=== PATIENT | male | born 1935 | race Caucasian/White ===

== ENCOUNTER → 2017-01-08 | Outpatient (CLI) | payer OTHER ==
[~2017-01-08] MED LIST: DOCU-94 PO; DUTA0.5C PO; ESCI1TAB9 PO; INSDGIPEN SC; INSUINJ4 SQ; LISI-792 PO; LPR25 PO; METF-383 PO; OMEP20CA9 PO; OXYB5TAB74 PO; SIMV10TA5 PO; TAMS0.4C38 PO; ZOLP5TAB PO
[2017-01-08 17:17] LABS: ALT/SGPT 19 U/L (12-78); BLOOD UREA NITROGEN 14 mg/dl (7-18); BUN/CREATININE RATIO 12.4 (10-20); CALCIUM 8.3 mg/dl (8.5-10.1); CARBON DIOXIDE 25 mmol/L (21-32); CHLORIDE 105 mmol/L (98-107); GLUCOSE 93 mg/dl (70-99); POTASSIUM 4.8 mmol/L (3.5-5.1); SODIUM 139 mmol/L (136-145)
[2017-01-08 17:22] LABS: ALB/GLOB RATIO 0.9 (0.9-2); ALKALINE PHOSPHATASE 75 U/L (45-117); AST/SGOT 15 U/L (15-37); PROSTATE SPECIFIC ANTIGEN 0.074 ng/ml (0.000-4.000)
[2017-01-09 06:12] LABS: ESTIMATED AVERAGE GLUCOSE 117 mg/dl; HA1C FLAG Normal (Normal)
--- NOTE | 2017-01-12 10:47 | CODING QUERY MEDICAL NECESSITY ---
SUPPORTING DIAGNOSIS NEEDED Dr. Bellamy, A supporting diagnosis is required for the test/procedure performed on this patient in order for us to be reimbursed by the patient's insurance. Please provide a supporting diagnosis for the following test/procedure listed below next to the test name along with your signature. *If there is no additional diagnosis for this patient that would support the following test/procedure please document that below next to the test/procedure. Test(s)/Procedure(s) that require a supporting diagnosis: * 72780 GLYCATED HEMOGLOBIN DIAGNOSIS: DATE OF SERVICE: 01/08/17 Provider Signature: Date: Thank you Dennis Joel [facility] Information Management Once completed, please kindly fax back to [phone] For questions please call [phone]
== END | disposition home or self-care (01) ==
LOC: C.LABBC 15:10
PROVIDERS: ATTEND Internal Medicine
DX: N40.1 Benign prostatic hyperplasia with lower urinary tract symptoms (principal); R33.9 Retention of urine, unspecified; I69.920 Aphasia following unspecified cerebrovascular disease; E11.9 Type 2 diabetes mellitus without complications

== ENCOUNTER 2017-01-25 12:08 | Emergency (ER) | payer OTHER ==
[~2017-01-25] VITALS: Ht 162.6 cm; Wt 76.3 kg
[~2017-01-25 12:08] MED LIST changes: +DTR/5 PO; -INSDGIPEN SC; -OXYB5TAB74 PO
[2017-01-25 12:14] VITALS: TEMP 36.7; Ht 162.6 cm; Wt 76.3 kg
--- NOTE | 2017-01-25 12:19 | EMERGENCY ROOM VISIT NOTE ---
History Report prepared by Dax: Flako Clayton Under the Supervision of: Dr. Flako Burnham M.D. First contact with patient: 12:10 Stated Complaint: FALL History of Present Illness The patient is a 81 year old male who presents to the Emergency Room by EMS with complaints of an episode of falling about 2 hours ago. Per EMS, he was going through his normal routine with his caregiver, and fell while getting his wheelchair. EMS notes a bump on the patient's head, and notes he does not use blood thinners. He was confused when EMS arrived, and has a history of stroke. Per the patient's caregiver, she heard him fall, but he was not unconscious or seizing when she found him. He has right sided weakness at baseline. He does not normally fall. He has a history of diabetes. The patient denies any neck pain, chest pain, shortness of breath, or any other pain. He does not recall falling this morning. Source of History: patient, family, caregiver, EMS Onset: about 2 hours ago Position: other (global) Quality: other (fall) Timing: other (episode) Associated Symptoms: No SOB, No chest pain, No neck pain Review of Systems See HPI for pertinent positives & negatives. A total of 10 systems reviewed and were otherwise negative. Past Medical & Surgical Medical Problems: (1) Altered mental status (2) Hemorrhagic stroke Old medical records were reviewed. Nurse's notes were reviewed and I agree with. Family History No pertinent family history stated. Social History Smoking Status: Former Smoker Alcohol Use: none Drug Use: none Marital Status: Housing Status: assisted living Occupation Status: retired Current/Historical Medications Scheduled Dutasteride (Avodart), 0.5 MG PO DAILY Escitalopram Oxalate (Lexapro), 10 MG PO DAILY Insulin Glargine (Lantus Solostar), 14 UNITS SC QPM Lisinopril (Zestril), 20 MG PO DAILY Metformin Hcl (Glucophage), 850 MG PO BID Metoprolol Tartrate (Lopressor), 25 MG PO BID Omeprazole (Prilosec), 20 MG PO DAILY Oxybutynin Chloride (Ditropan), 5 MG PO HS Simvastatin (Zocor), 10 MG PO HS Tamsulosin Hcl (Flomax), 0.4 MG PO DAILY Scheduled PRN Docusate Sodium (Colace), 100 MG PO BID PRN for Constipation Zolpidem Tartrate (Ambien), 5 MG PO HS PRN for Insomnia Allergies Coded Allergies: No Known Allergies (Verified , `, 01/25/17) Physical Exam Vital Signs Date Time Temp Pulse Resp B/P Pulse Ox O2 Delivery O2 Flow Rate FiO2 01/25/17 15:00 64 16 114/93 99 01/25/17 14:00 61 16 149/85 94 Room Air 01/25/17 13:08 75 19 01/25/17 12:38 70 20 01/25/17 12:27 74 01/25/17 12:14 36.7 62 14 143/97 95 Room Air Physical Exam General: Non-ill appearing, older male, no acute distress, answering questions appropriately. HEENT: Hematoma on posterior scalp. Pupils are equal round and reactive to light. Extraocular movements are intact. Oropharynx is pink with moist mucous membranes. No swelling of the mouth lips or tongue. Neck: Supple with a midline trachea. No meningeal signs or stiffness, no JVD or bruits. No Stridor. Chest: Clear to auscultation bilaterally. No wheezes or rhonchi. No increased work of breathing. Heart: regular rate and rhythm. Abdomen: Soft nontender, nondistended without rebound guarding or rigidity. Extremities: No cyanosis clubbing or edema. No calf tenderness or assymetry Spine/Back. Non tender to palpation. No CVA tenderness Skin: Good turgor without rashes. Neurologic exam: Baseline weakness with contractors of right arm and, to lesser extent, right leg. No facial droop or asymmetry. Normal speech. Alert to person , but not date or place. Medical Decision & Procedures ER Provider Diagnostic Interpretation: Radiology results as stated below per my review and radiologist interpretation: CT HEAD WITHOUT CONTRAST (CT) FINDINGS: No intra or extra-axial mass lesions are visualized. There is no CT evidence of acute cortical infarction. There is no evidence of midline shift. There is a tiny left anterior parafalcine subdural hematoma. There are extensive white matter hypodensities likely on a small vessel basis. There are old lacunar infarcts involving the thalami. There is an old infarcts involving the cerebellum. No calvarial fractures are visualized. There is ventricular dilatation, likely secondary to volume loss. There is a right mastoid effusion. IMPRESSION: 1. Tiny left anterior parafalcine subdural hematoma 2. Extensive white matter disease likely a small vessel basis 3. Old thalamic and right cerebellar infarcts 4. Right mastoid effusion Electronically signed by: Alexis Osullivan M.D. 01/25/2017 1:42 PM Dictated Date/Time: 01/25/2017 1:38 PM CHEST ONE VIEW PORTABLE FINDINGS: The heart is borderline enlarged. Postsurgical changes are evident within the cervical spine. There is no failure. 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 There is blunting of the right lateral costophrenic angle. Slight prominence the right basal markings are likely atelectatic. IMPRESSION: 1. Prominent right basilar markings likely atelectatic. Equivocal trace right pleural effusion. Electronically signed by: Alexis Osullivan M.D. 01/25/2017 12:48 PM Dictated Date/Time: 01/25/2017 12:46 PM Laboratory Results 01/25/17 12:43 Red Blood Count 4.86, Mean Corpuscular Volume 89.9, Mean Corpuscular Hemoglobin 30.9, Mean Corpuscular Hemoglobin Concent 34.3, Mean Platelet Volume 8.8, Neutrophils (%) (Auto) 54.9, Lymphocytes (%) (Auto) 35.7, Monocytes (%) (Auto) 6.1, Eosinophils (%) (Auto) 2.6, Basophils (%) (Auto) 0.4, Neutrophils # (Auto) 3.79, Lymphocytes # (Auto) 2.47, Monocytes # (Auto) 0.42, Eosinophils # (Auto) 0.18, Basophils # (Auto) 0.03 01/25/17 12:43 Test 01/25/17 12:43 01/25/17 12:47 White Blood Count 6.91 K/uL (4.8-10.8) Red Blood Count 4.86 M/uL (4.7-6.1) Hemoglobin 15.0 g/dL (14.0-18.0) Hematocrit 43.7 % (42-52) Mean Corpuscular Volume 89.9 fL (80-100) Mean Corpuscular Hemoglobin 30.9 pg (25-34) Mean Corpuscular Hemoglobin Concent 34.3 g/dl (32-36) Platelet Count 167 K/uL (130-400) Mean Platelet Volume 8.8 fL (7.4-10.4) Neutrophils (%) (Auto) 54.9 % Lymphocytes (%) (Auto) 35.7 % Monocytes (%) (Auto) 6.1 % Eosinophils (%) (Auto) 2.6 % Basophils (%) (Auto) 0.4 % Neutrophils # (Auto) 3.79 K/uL (1.4-6.5) Lymphocytes # (Auto) 2.47 K/uL (1.2-3.4) Monocytes # (Auto) 0.42 K/uL (0.11-0.59) Eosinophils # (Auto) 0.18 K/uL (0-0.5) Basophils # (Auto) 0.03 K/uL (0-0.2) RDW Standard Deviation 43.8 fL (36.4-46.3) RDW Coefficient of Variation 13.3 % (11.5-14.5) Immature Granulocyte % (Auto) 0.3 % Immature Granulocyte # (Auto) 0.02 K/uL (0.00-0.02) Anion Gap 8.0 mmol/L (3-11) Est Creatinine Clear Calc Drug Dose 55.1 ml/min Estimated GFR () 82.0 Estimated GFR (Non- 70.8 BUN/Creatinine Ratio 14.1 (10-20) Calcium Level 8.6 mg/dl (8.5-10.1) Total Bilirubin 0.5 mg/dl (0.2-1) Direct Bilirubin 0.1 mg/dl (0-0.2) Aspartate Amino Transf (AST/SGOT) 12 U/L (15-37) Alanine Aminotransferase (ALT/SGPT) 17 U/L (12-78) Alkaline Phosphatase 72 U/L (45-117) Total Protein 7.3 gm/dl (6.4-8.2) Albumin 3.5 gm/dl (3.4-5.0) Lipase 78 U/L (73-393) Bedside Troponin I 0.000 ng/ml (0-0.045) Laboratory studies as stated above per my review. ECG Indication: other (fall) Rate (beats per minute): 63 Rhythm: normal sinus Findings: no acute ischemic change, no ectopy, other (poor R wave progression) Comparison ECG Date: November 12, 2015 Change: no significant change ED Course 1212: Past medical records reviewed. The patient was evaluated in room C5, and a complete history and physical examination were performed. 1402: I updated the patient and caregiver. They are deciding what they would like to do. I recommended transfer to a tertiary care facility. 1427: I discussed the patient's case with Dr. Aguilar, who will accept the patient as a transfer. Medical Decision Differentials include intracranial hemorrhage, CVA, arrhythmia, acute coronary syndrome, and electrolyte or metabolic abnormality. This patient comes in as described above. He has a history of a stroke and has significant right-sided weakness at baseline with difficulty ambulating. He was getting out of his chair and fell. There was no known loss of consciousness. He seems to be back at his baseline now has no new neurologic deficits. CAT scan of his head was obtained. EKG and multiple blood testing was obtained. His EKG does not suggest acute coronary syndrome or arrhythmia. Cagey and troponin do not suggest acute cardiac event. He has no significant electrode metabolic abdomen nausea is nothing to suggest significant anemia or electrolyte or metabolic abdomen nausea sepsis. His CAT scan of his head does show a tiny subdural hematoma. I do think he needs to be monitored for this. He is not on any blood thinners. Given the fact that we do not have a neurosurgeon at this hospital, I do think he needs to be transferred to a tertiary care center where Neurosurgical evaluation monitoring. I talked to the family at length and I think it is very likely that he will be observed and discharged in a day or so and may likely need another CAT scan. However on the small chance that this increases, this could become an acute neurosurgical emergency and we do not have the backup at this hospital to treat this. They' re in agreement. The patient will be transferred to [facility]. I did call and talk to the [facility] ER physician's except for the patient. He is remained stable be transferred for neurosurgical evaluation. Consults Time Called: 1419 Consulting Physician: Dr. Aguilar, [facility] Returned Call: [phone] I discussed the patient's case with Dr. Aguilar, who will accept the patient as a transfer. Impression Primary Impression: Subdural hematoma Additional Impressions: Fall Concussion Scribe Attestation The scribe's documentation has been prepared under my direction and personally reviewed by me in its entirety. I confirm that the note above accurately reflects all work, treatment, procedures, and medical decision making performed by me. Departure Information Dispostion Transfer Acute Care Facility Referrals Tirso Bellamy M.D. (PCP) Problem Qualifiers
--- NOTE | 2017-01-25 12:49 | DIAGNOSTIC IMAGING REPORT ---
CHEST ONE VIEW PORTABLE CLINICAL HISTORY: Atypical chest pain COMPARISON STUDY: 11/12/2015 FINDINGS: The heart is borderline enlarged. Postsurgical changes are evident within the cervical spine. There is no failure. 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 There is blunting of the right lateral costophrenic angle. Slight prominence the right basal markings are likely atelectatic.[ IMPRESSION: 1. Prominent right basilar markings likely atelectatic. Equivocal trace right pleural effusion. Electronically signed by: Alexis Osullivan M.D. 01/25/2017 12:48 PM Dictated Date/Time: 01/25/2017 12:46 PM
[2017-01-25 12:59] LABS: BASO % 0.4 %; BASO ABS # 0.03 K/uL (0-0.2); COMPLETE YES; EOS % 2.6 %; HEMATOCRIT 43.7 % (42-52); IG% 0.3 %; LYMPH % 35.7 %; LYMPH ABS # 2.47 K/uL (1.2-3.4); MEAN CELL VOLUME 89.9 fL (80-100); MEAN CORPUSCULAR HEMOGLOBIN 30.9 pg (25-34); MEAN CORPUSCULAR HGB CONC 34.3 g/dl (32-36); MEAN PLATELET VOLUME 8.8 fL (7.4-10.4); MONO % 6.1 %; NEUT % 54.9 %; PLATELET COUNT 167 K/uL (130-400); RED BLOOD COUNT 4.86 M/uL (4.7-6.1); WHITE BLOOD COUNT 6.91 K/uL (4.8-10.8)
[2017-01-25 13:14] LABS: CALCIUM 8.6 mg/dl (8.5-10.1); POTASSIUM 4.5 mmol/L (3.5-5.1)
[2017-01-25 13:15] LABS: BUN/CREATININE RATIO 14.1 (10-20)
--- NOTE | 2017-01-25 13:44 | DIAGNOSTIC IMAGING REPORT ---
CT HEAD WITHOUT CONTRAST (CT) CLINICAL HISTORY: Head trauma. Confusion. COMPARISON STUDY: 11/12/2015 TECHNIQUE: Axial CT of the brain is performed from the vertex to the skull base. IV contrast was not administered for this examination. CT DOSE: 614.27 mGy.cm FINDINGS: No intra or extra-axial mass lesions are visualized. There is no CT evidence of acute cortical infarction. There is no evidence of midline shift. There is a tiny left anterior parafalcine subdural hematoma. There are extensive white matter hypodensities likely on a small vessel basis. There are old lacunar infarcts involving the thalami. There is an old infarcts involving the cerebellum. No calvarial fractures are visualized. There is ventricular dilatation, likely secondary to volume loss. There is a right mastoid effusion. IMPRESSION: 1. Tiny left anterior parafalcine subdural hematoma 2. Extensive white matter disease likely a small vessel basis 3. Old thalamic and right cerebellar infarcts 4. Right mastoid effusion Electronically signed by: Alexis Osullivan M.D. 01/25/2017 1:42 PM Dictated Date/Time: 01/25/2017 1:38 PM
[2017-01-25] MEDS ORDERED: INSDGIPEN SC (14:30)
[2017-01-25 15:00] VITALS: BP 114/93; PULSE 64; O2SAT 99
== END 2017-01-25 15:33 | disposition short-term general hospital (02) ==
LOC: EDBD 12:08 → C.EDC 12:10
DX: S06.5X0A Traumatic subdural hemorrhage without loss of consciousness, initial encounter (principal); S06.0X0A Concussion without loss of consciousness, initial encounter; W05.0XXA Fall from non-moving wheelchair, initial encounter; Y92.89 Other specified places as the place of occurrence of the external cause; E11.9 Type 2 diabetes mellitus without complications; Z79.899 Other long term (current) drug therapy

== ENCOUNTER → 2017-07-15 | Outpatient (CLI) | payer OTHER ==
[~2017-07-15] MED LIST changes: -DTR/5 PO; +INSDGIPEN SC; -INSUINJ4 SQ; +OXYB5TAB74 PO
[2017-07-15 17:16] LABS: BASO % 0.3 %; BASO ABS # 0.02 K/uL (0-0.2); COMPLETE YES; EOS % 2.5 %; HEMATOCRIT 42.2 % (42-52); IG% 0.1 %; LYMPH % 40.3 %; LYMPH ABS # 3.01 K/uL (1.2-3.4); MEAN CELL VOLUME 93.2 fL (80-100); MEAN CORPUSCULAR HEMOGLOBIN 31.6 pg (25-34); MEAN CORPUSCULAR HGB CONC 33.9 g/dl (32-36); MEAN PLATELET VOLUME 9.4 fL (7.4-10.4); MONO % 6.4 %; NEUT % 50.4 %; PLATELET COUNT 185 K/uL (130-400); RED BLOOD COUNT 4.53 M/uL (4.7-6.1); WHITE BLOOD COUNT 7.47 K/uL (4.8-10.8)
[2017-07-15 17:29] LABS: ALT/SGPT 13 U/L (12-78); BLOOD UREA NITROGEN 18 mg/dl (7-18); BUN/CREATININE RATIO 14.7 (10-20); CALCIUM 9.2 mg/dl (8.5-10.1); CARBON DIOXIDE 24 mmol/L (21-32); CHLORIDE 102 mmol/L (98-107); CHOLESTEROL 104 mg/dl (0-200); GLUCOSE 102 mg/dl (70-99); POTASSIUM 4.6 mmol/L (3.5-5.1); SODIUM 136 mmol/L (136-145)
[2017-07-15 17:40] LABS: ALB/GLOB RATIO 0.9 (0.9-2); ALKALINE PHOSPHATASE 75 U/L (45-117); AST/SGOT 16 U/L (15-37); CHOLESTEROL/HDL RATIO 2.7; HDL CHOLESTEROL 39 mg/dl; LDL CHOLESTEROL CALCULATED 34 mg/dl; TRIGLYCERIDES 156 mg/dl (0-150); VERY LOW DENSITY LIPOPROT CALC 31 mg/dl
== END | disposition home or self-care (01) ==
LOC: C.LABBC 14:59
PROVIDERS: ATTEND Internal Medicine
DX: M48.06 Spinal stenosis, lumbar region (principal)

== ENCOUNTER 2021-01-30 12:52 | Inpatient (IN) ==
[2021-01-30 13:46] LABS: Basophils # (auto) 0.02 K/uL (0-0.2); Basophils % (auto) 0.2 %; Eosinophils # (auto) 0.21 K/uL (0-0.5); Eosinophils % (auto) 2.5 %; Hematocrit (blood only) 35.2 % (42-52); Hemoglobin 11.7 g/dL (14.0-18.0); Immature Granulocytes # (auto) 0.01 K/uL (0.00-0.02); Immature Granulocytes % (auto) 0.1 %; Lymphocytes # (auto) 2.47 K/uL (1.2-3.4); Lymphocytes % (auto) 29.3 %; Mean Corpuscular Hgb Conc 33.2 g/dL (32-36); Mean Corpuscular Volume 93.1 fL (80-100); Mean Platelet Volume 8.8 fL (7.4-10.4); Monocytes # (auto) 0.75 K/uL (0.11-0.59); Monocytes % (auto) 8.9 %; Neutrophils # (auto) 4.98 K/uL (1.4-6.5); Platelet Count 212 K/uL (130-400); RDW Coefficient of Variation 14.7 % (11.5-14.5); RDW Standard Deviation 49.6 fL (36.4-46.3); Red Blood Count 3.78 M/uL (4.7-6.1); White Blood Count 8.44 K/uL (4.8-10.8)
[2021-01-30 14:17] LABS: Alanine Aminotransferase 15 U/L (12-78); Albumin Level 2.6 gm/dl (3.4-5.0); Aspartate Aminotransferase 19 U/L (15-37); BUN Creatinine Ratio 9.5 (10-20); Blood Urea Nitrogen 9 mg/dl (7-18); Calcium 8.1 mg/dl (8.5-10.1); Carbon Dioxide 28 mmol/L (21-32); Chloride 108 mmol/L (98-107); Est GFR (African American) 87.1; Est GFR (Non-African American) 75.1; Glucose 103 mg/dl (70-99); Lipase 83 U/L (73-393); Potassium 3.3 mmol/L (3.5-5.1); Sodium 139 mmol/L (136-145)
[2021-01-30 14:19] LABS: Albumin Globulin Ratio 0.7 (0.9-2); Alkaline Phosphatase 100 U/L (45-117); Bilirubin,Total 0.4 mg/dl (0.2-1); Globulin 3.8 gm/dl (2.5-4.0); Total Protein 6.4 gm/dl (6.4-8.2)
--- NOTE | 2021-01-30 14:23 | XRay Report ---
XR KUB/Abdomen 1 view CLINICAL HISTORY: Abdominal pain COMPARISON STUDY: No previous studies for comparison. FINDINGS: A single supine view the abdomen is provided for interpretation. The pelvis and right later al abdomen are not included. Additional views were to be obtained however the emergency room physicia n stated no additional films were necessary as he was going to order CT scan. The provided views reveal mild gaseous distention of the bowel. IMPRESSION: 1. Nonspecific bowel gas pattern with gaseous distention of the bowel. 2. Technically limited study as the entire abdomen was not included on the examination ACT 112: Negative or not required by law. Electronically signed by: Alexis Osullivan M.D. 01/30/2021 2:22 PM
--- NOTE | 2021-01-30 14:50 | Emergency Department Note ---
Impression & Plan Colitis, Generalized abdominal pain, UTI (urinary tract infection) ED Provider Note INFORMANT: Patient, nursing notes ED PROVIDER(S): Skip Lewis MD CHIEF COMPLAINT: Abdominal pain PLAN: Disposition: Admitted Condition: Good Outpatient prescription management: none Referral: None MEDICAL DECISION MAKING: Patient presented emergency room because abdominal pain and bloody stool. On physical examination he had abdominal pain. He did complain of abdominal pain although the history is very limited secondary to his reported dementia. The patient had an x-ray performed and showed some marked dilation of bowel loops. A CT scan was performed and revealed colonic dilatation but no transition point no obstruction. He did have a colitis noted. His blood work was unremarkable. Urinalysis was concerning for infection. Patient was given IV Rocephin. He was hydrated. Consultation was made with Dr. Isabel of gastroenterology. He recommended inpatient treatment and monitoring. Consultation was made with the [facility] service. Case was discussed with JUAN Lloyd. The patient will be admitted for further management. Triage Nursing notes reviewed and agree them. Prior medical records reviewed from the nursing facility noting his symptoms and their concerns Vital Signs: reviewed and remarkable for no significant abnormalities Differential diagnosis: Appendicitis, testicular torsion, infections, diverticulitis, UTI, obstruction, mesenteric ischemia, aortic pathology, inflammatory bowel disease, renal colic, PUD, pancreatitis, biliary pathology, hernia, volvulus, constipation, as well as other pathologies. Diagnostics interpreted by me: ECG: Twelve-lead ECG reveals a sinus rhythm with first-degree block at [address] elevation or depression. No PACs or PVCs. Normal QRS and axis. Cardiac Monitoring: Cardiac monitoring ordered by me: The patient was placed on continuous cardiac monitoring and observed. It revealed a normal sinus rhythm at 65 beats per minute without ectopy or evidence of dysrhythmia. Imaging studies: CT scan abdomen pelvis reveals colonic dilatation without transition point no obstruction. Colitis noted. Consultation(s): [facility] hospital service [facility] GI HPI: The patient is a 85 year old male with history of dementia, CVA, and traumatic subdural who presents to the Emergency Room from his custodial with complaints of abdominal pain. This started several days ago. Apparently the patient had an outpatient x-ray that raise concerns about bowel obstruction versus volvulus. The patient is demented and cannot add much to the history. He does note abdominal pain. The [facility] communication form did note bloody stool. History is limited secondary to patient's dementia ROS: See above HPI for pertinent positives & negatives. Limited secondary to dementia PAST MEDICAL HISTORY:See Below , CVA PAST SURGICAL HISTORY:See Below, FAMILY HISTORY:See Below SOCIAL HISTORY:See Below, resides in a custodial HOME MEDICATIONS:See Below ALLERGIES:See Below VITALS:See Below PHYSICAL EXAMINATION: GENERAL: Awake, alert, uncomfortable-appearing, in no distress HENT: Normocephalic. Old appearing periorbital ecchymoses. Oropharynx unremarkable. EYES: Normal conjunctiva. Sclera non-icteric. NECK: Inspection normal. Non-tender. Supple. No nuchal rigidity. FROM. No masses. RESPIRATORY: Clear to auscultation. No wheezes. No rales. Normal respiratory effort. CARDIAC: Normal rate. Normal rhythm. No murmurs. No rubs. Extremities warm and well perfused. Pulses equal. No JVD. GI: Soft, mildly-distended. Left-sided and lower tenderness to palpation. No obvious rebound. Mildly rigid in the left lower side. No masses. RECTAL: Deferred. MUSCULOSKELETAL: Atraumatic. Chest examination reveals no tenderness. The back is symmetrical on inspection without obvious abnormality. There is no CVA tenderness to palpation. No joint edema. LOWER EXTREMITIES: Calves are equal size bilaterally and non-tender. No edema. No discoloration. NEURO: Demented sensorium. Moving arms and legs. Following basic commands. SKIN: No rash or jaundice noted. 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 SDH (subdural hematoma) Subdural hematoma Urge incontinence of urine Urinary symptom or sign Vitamin B12 deficiency (dietary) anemia Surgical History History of colonoscopy History of eye surgery Family History Sister Hyperlipidemia Father , at age 60 Leukemia Mother , at age 90 from "old age" No problems noted. Other Family history non-contributory Social History Smoking Status: Unknown if ever smoked Tobacco Type: Cigarettes Second Hand Exposure: No; Hx Alcohol Use: No Hx Substance Use: No Preferred Language: Welsh Communication Ability: Impaired Visual Impairment: Limited Hearing Ability: Use of Hearing Aid marital status: Single Current Living Situation: [facility] Current Living Situation Comment: [facility] current occupational status: retired Feels Safe at Home: Yes Childhood Exposure to Second-Hand Smoke: No caffeine: Yes Dental Care, Regularly: Yes Physical Activity Frequency: Does not Exercise Seatbelt Use: always Sunscreen Use: No Allergies Allergies Allergy/AdvReac Type Severity Reaction Status Date / Time No Known Allergies Allergy ` Verified 01/30/21 16:09 Home Meds Home Medications Medication Instructions Recorded Confirmed ascorbate calcium (vitamin C) 500 mg PO QAM 07/09/20 01/30/21 cetirizine [Zyrtec] 5 mg PO QAM 07/09/20 01/30/21 escitalopram oxalate 10 mg PO QAM 07/09/20 01/30/21 tamsulosin 0.4 mg PO QAM 07/09/20 01/30/21 acetaminophen [Tylenol] 975 mg PO Q6H PRN MDD 3 GRAMS 01/15/21 01/30/21 APAP/24 HOURS insulin glargine [Lantus Solostar 18 unit SUBCUT HS 01/15/21 01/30/21 U-100 Insulin] acetaminophen [Tylenol] 650 mg PO QAM 01/30/21 01/30/21 meclizine 12.5 mg PO QAM 01/30/21 01/30/21 metoprolol tartrate 25 mg PO AMHS 01/30/21 01/30/21 omeprazole 10 mg PO QAM 01/30/21 01/30/21 sennosides [senna] 17.2 mg PO AMHS 01/30/21 01/30/21 trazodone 25 mg PO HS PRN 01/30/21 01/30/21 Previous Rx's Medication Instructions Recorded simvastatin 10 mg tablet 10 mg PO HS #90 tab 10/14/19 cyanocobalamin (vitamin B-12) 1,000 mcg PO QAM #90 cap 12/20/20 1,000 mcg capsule lactase 3,000 unit tablet 3,000 unit PO QID #120 tab 12/20/20 metformin 850 mg tablet 850 mg PO QAM #90 tab 12/20/20 Results & Data (ED) Vital Signs Vital Signs - 24 hr 01/30/21 13:00 01/30/21 13:01 01/30/21 13:02 Temperature 36.0 C L Temperature Source Axillary Pulse Rate 72 66 71 Pulse Rate [Right Finger] Pulse Rate from SpO2 Sensor 71 66 Pulse Rhythm [Right Finger] Pulse Strength [Right Finger] Respiratory Rate 17 18 20 Respiratory Effort / Characteristics Non-Labored Spontaneous Respiratory Depth Normal Respiratory Pattern Regular Blood Pressure 106/69 115/69 Blood Pressure [Right Arm] Blood Pressure Mean 81 84 Blood Pressure Mean [Right Arm] Blood Pressure Position [Right Arm] Pulse Oximetry 94 96 95 Oxygen Delivery Method Room Air Sepsis Recent Fever Within 48 Hours No Sepsis New/Unexplained Change in Mental Status N/A Sepsis Action Taken by Nursing No Action Required 01/30/21 13:30 01/30/21 14:00 01/30/21 14:01 Temperature Temperature Source Pulse Rate 75 64 65 Pulse Rate [Right Finger] Pulse Rate from SpO2 Sensor 75 63 65 Pulse Rhythm [Right Finger] Pulse Strength [Right Finger] Respiratory Rate 18 19 19 Respiratory Effort / Characteristics Respiratory Depth Respiratory Pattern Blood Pressure 101/49 L Blood Pressure [Right Arm] Blood Pressure Mean 66 Blood Pressure Mean [Right Arm] Blood Pressure Position [Right Arm] Pulse Oximetry 97 95 95 Oxygen Delivery Method Sepsis Recent Fever Within 48 Hours Sepsis New/Unexplained Change in Mental Status Sepsis Action Taken by Nursing 01/30/21 15:35 01/30/21 16:07 01/30/21 16:41 Temperature Temperature Source Pulse Rate Pulse Rate [Right Finger] 58 L 75 72 Pulse Rate from SpO2 Sensor Pulse Rhythm [Right Finger] Pulse Strength [Right Finger] Respiratory Rate 16 20 18 Respiratory Effort / Characteristics Respiratory Depth Respiratory Pattern Blood Pressure Blood Pressure [Right Arm] 118/57 L 135/70 112/67 Blood Pressure Mean Blood Pressure Mean [Right Arm] 77 91 82 Blood Pressure Position [Right Arm] Pulse Oximetry 95 98 Oxygen Delivery Method Room Air Sepsis Recent Fever Within 48 Hours Sepsis New/Unexplained Change in Mental Status Sepsis Action Taken by Nursing 01/30/21 17:52 01/30/21 19:07 Temperature Temperature Source Pulse Rate Pulse Rate [Right Finger] 74 71 Pulse Rate from SpO2 Sensor Pulse Rhythm [Right Finger] Regular Pulse Strength [Right Finger] Normal Respiratory Rate 20 21 Respiratory Effort / Characteristics Non-Labored Spontaneous Respiratory Depth Normal Respiratory Pattern Regular Blood Pressure Blood Pressure [Right Arm] 116/52 L 158/82 H Blood Pressure Mean Blood Pressure Mean [Right Arm] 73 107 Blood Pressure Position [Right Arm] Lying Pulse Oximetry 98 98 Oxygen Delivery Method Room Air Sepsis Recent Fever Within 48 Hours Sepsis New/Unexplained Change in Mental Status Sepsis Action Taken by Nursing Laboratory Data Result diagrams: 01/30/21 13:33 01/30/21 13:33 Lab Results 01/30/21 01/30/21 01/30/21 Range/Units 13:33 13:33 13:33 WBC 8.44 (4.8-10.8) K/uL RBC 3.78 L (4.7-6.1) M/uL Hgb 11.7 L (14.0-18.0) g/dL Hct 35.2 L (42-52) % MCV 93.1 (80-100) fL MCH 31.0 (25-34) pg MCHC 33.2 (32-36) g/dL RDW Std Deviation 49.6 H (36.4-46.3) fL RDW Coeff of Brianna 14.7 H (11.5-14.5) % Plt Count 212 (130-400) K/uL MPV 8.8 (7.4-10.4) fL Immature Gran % (Auto) 0.1 % Neut % (Auto) 59.0 % Lymph % (Auto) 29.3 % Jack % (Auto) 8.9 % Eos % (Auto) 2.5 % Baso % (Auto) 0.2 % Neut # (Auto) 4.98 (1.4-6.5) K/uL Lymph # (Auto) 2.47 (1.2-3.4) K/uL Jack # (Auto) 0.75 H (0.11-0.59) K/uL Eos # (Auto) 0.21 (0-0.5) K/uL Baso # (Auto) 0.02 (0-0.2) K/uL Immature Gran # (Auto) 0.01 (0.00-0.02) K/uL Sodium 139 (136-145) mmol/L Potassium 3.3 L (3.5-5.1) mmol/L Chloride 108 H (98-107) mmol/L Carbon Dioxide 28 (21-32) mmol/L Anion Gap 3.0 (3-11) BUN 9 (7-18) mg/dl Creatinine 0.93 (0.6-1.4) mg/dl Est Cr Clr Drug Dosing Not Reportable Est GFR ( Amer) 87.1 Est GFR (Non-Af Amer) 75.1 BUN/Creatinine Ratio 9.5 L (10-20) Glucose 103 H (70-99) mg/dl Lactate (0.4-2.0) mmol/L Calcium 8.1 L (8.5-10.1) mg/dl Magnesium (1.8-2.4) mg/dl Total Bilirubin 0.4 (0.2-1) mg/dl AST 19 (15-37) U/L ALT 15 (12-78) U/L Alkaline Phosphatase 100 (45-117) U/L Total Protein 6.4 (6.4-8.2) gm/dl Albumin 2.6 L (3.4-5.0) gm/dl Globulin 3.8 (2.5-4.0) gm/dl Albumin/Globulin Ratio 0.7 L (0.9-2) Lipase 83 (73-393) U/L Urine Color Yellow Urine Appearance Clear (Clear) Urine pH 6.5 (4.5-7.5) Ur Specific Superior 1.016 (1.000-1.030) Urine Protein 1+ H (Negative) Urine Glucose (UA) Negative (Negative) Urine Ketones Trace H (Negative) Urine Blood 3+ H (Negative) Urine Nitrite Negative (Negative) Urine Bilirubin Negative (Negative) Urine Urobilinogen Negative (Negative) Ur Leukocyte Esterase 2+ H (Negative) Urine WBC (Auto) 10-30 H (0-5) /hpf Urine RBC (Auto) 10-30 H (0-4) /hpf U Hyaline Cast (Auto) 1-5 (0-5) /lpf U Epithel Cells (Auto) 20-30 H (0-5) /lpf Urine Bacteria (Auto) 1+ H (Negative) COVID-19 Eval Order SARS-CoV-2 (PCR) (Negative) Influenza Type A (PCR) (Neg) Influenza Type B (PCR) (Neg) RSV (RT-PCR) (Neg) 01/30/21 01/30/21 01/30/21 Range/Units 17:56 17:56 19:19 WBC (4.8-10.8) K/uL RBC (4.7-6.1) M/uL Hgb (14.0-18.0) g/dL Hct (42-52) % MCV (80-100) fL MCH (25-34) pg MCHC (32-36) g/dL RDW Std Deviation (36.4-46.3) fL RDW Coeff of Brianna (11.5-14.5) % Plt Count (130-400) K/uL MPV (7.4-10.4) fL Immature Gran % (Auto) % Neut % (Auto) % Lymph % (Auto) % Jack % (Auto) % Eos % (Auto) % Baso % (Auto) % Neut # (Auto) (1.4-6.5) K/uL Lymph # (Auto) (1.2-3.4) K/uL Jack # (Auto) (0.11-0.59) K/uL Eos # (Auto) (0-0.5) K/uL Baso # (Auto) (0-0.2) K/uL Immature Gran # (Auto) (0.00-0.02) K/uL Sodium (136-145) mmol/L Potassium (3.5-5.1) mmol/L Chloride (98-107) mmol/L Carbon Dioxide (21-32) mmol/L Anion Gap (3-11) BUN (7-18) mg/dl Creatinine (0.6-1.4) mg/dl Est Cr Clr Drug Dosing Est GFR ( Amer) Est GFR (Non-Af Amer) BUN/Creatinine Ratio (10-20) Glucose (70-99) mg/dl Lactate 1.4 (0.4-2.0) mmol/L Calcium (8.5-10.1) mg/dl Magnesium (1.8-2.4) mg/dl Total Bilirubin (0.2-1) mg/dl AST (15-37) U/L ALT (12-78) U/L Alkaline Phosphatase (45-117) U/L Total Protein (6.4-8.2) gm/dl Albumin (3.4-5.0) gm/dl Globulin (2.5-4.0) gm/dl Albumin/Globulin Ratio (0.9-2) Lipase (73-393) U/L Urine Color Urine Appearance (Clear) Urine pH (4.5-7.5) Ur Specific Superior (1.000-1.030) Urine Protein (Negative) Urine Glucose (UA) (Negative) Urine Ketones (Negative) Urine Blood (Negative) Urine Nitrite (Negative) Urine Bilirubin (Negative) Urine Urobilinogen (Negative) Ur Leukocyte Esterase (Negative) Urine WBC (Auto) (0-5) /hpf Urine RBC (Auto) (0-4) /hpf U Hyaline Cast (Auto) (0-5) /lpf U Epithel Cells (Auto) (0-5) /lpf Urine Bacteria (Auto) (Negative) COVID-19 Eval Order CovFluRsv at [facility] SARS-CoV-2 (PCR) NEGATIVE (Negative) Influenza Type A (PCR) Negative (Neg) Influenza Type B (PCR) Negative (Neg) RSV (RT-PCR) Negative (Neg) 01/30/21 Range/Units 19:20 WBC (4.8-10.8) K/uL RBC (4.7-6.1) M/uL Hgb (14.0-18.0) g/dL Hct (42-52) % MCV (80-100) fL MCH (25-34) pg MCHC (32-36) g/dL RDW Std Deviation (36.4-46.3) fL RDW Coeff of Brianna (11.5-14.5) % Plt Count (130-400) K/uL MPV (7.4-10.4) fL Immature Gran % (Auto) % Neut % (Auto) % Lymph % (Auto) % Jack % (Auto) % Eos % (Auto) % Baso % (Auto) % Neut # (Auto) (1.4-6.5) K/uL Lymph # (Auto) (1.2-3.4) K/uL Jack # (Auto) (0.11-0.59) K/uL Eos # (Auto) (0-0.5) K/uL Baso # (Auto) (0-0.2) K/uL Immature Gran # (Auto) (0.00-0.02) K/uL Sodium (136-145) mmol/L Potassium (3.5-5.1) mmol/L Chloride (98-107) mmol/L Carbon Dioxide (21-32) mmol/L Anion Gap (3-11) BUN (7-18) mg/dl Creatinine (0.6-1.4) mg/dl Est Cr Clr Drug Dosing Est GFR ( Amer) Est GFR (Non-Af Amer) BUN/Creatinine Ratio (10-20) Glucose (70-99) mg/dl Lactate (0.4-2.0) mmol/L Calcium (8.5-10.1) mg/dl Magnesium 1.8 (1.8-2.4) mg/dl Total Bilirubin (0.2-1) mg/dl AST (15-37) U/L ALT (12-78) U/L Alkaline Phosphatase (45-117) U/L Total Protein (6.4-8.2) gm/dl Albumin (3.4-5.0) gm/dl Globulin (2.5-4.0) gm/dl Albumin/Globulin Ratio (0.9-2) Lipase (73-393) U/L Urine Color Urine Appearance (Clear) Urine pH (4.5-7.5) Ur Specific Superior (1.000-1.030) Urine Protein (Negative) Urine Glucose (UA) (Negative) Urine Ketones (Negative) Urine Blood (Negative) Urine Nitrite (Negative) Urine Bilirubin (Negative) Urine Urobilinogen (Negative) Ur Leukocyte Esterase (Negative) Urine WBC (Auto) (0-5) /hpf Urine RBC (Auto) (0-4) /hpf U Hyaline Cast (Auto) (0-5) /lpf U Epithel Cells (Auto) (0-5) /lpf Urine Bacteria (Auto) (Negative) COVID-19 Eval Order SARS-CoV-2 (PCR) (Negative) Influenza Type A (PCR) (Neg) Influenza Type B (PCR) (Neg) RSV (RT-PCR) (Neg) Administered Medications Sodium Chloride (Nss 1000ml) 1,000 mls @ 125 mls/hr IV .Q8H STA Stop: 01/31/21 01:12 Last Admin: 01/30/21 19:06 Dose: 125 mls/hr Documented by: [id number] Discontinued Medications Ceftriaxone Sodium (Rocephin) 1,000 mg in 50 mls @ 100 mls/hr IV NOW STA Stop: 01/30/21 16:50 Last Infusion: 01/30/21 17:07 Dose: 0 mls/hr Documented by: [id number] Admin: 01/30/21 16:38 Dose: 100 mls/hr Documented by: [id number] Sodium Chloride (Nss 1000ml) 500 mls @ 999 mls/hr IV .Q31M ONE Stop: 01/30/21 17:43 Last Infusion: 01/30/21 18:11 Dose: 0 mls/hr Documented by: [id number] Admin: 01/30/21 17:22 Dose: 999 mls/hr Documented by: [id number] Imaging Data Radiologist's Impression: KUB X-Ray 01/30/21 13:19 XR KUB/Abdomen 1 view CLINICAL HISTORY: Abdominal pain COMPARISON STUDY: No previous studies for comparison. FINDINGS: A single supine view the abdomen is provided for interpretation. The pelvis and right lateral abdomen are not included. Additional views were to be obtained however the emergency room physician stated no additional films were necessary as he was going to order CT scan. The provided views reveal mild gaseous distention of the bowel. IMPRESSION: 1. Nonspecific bowel gas pattern with gaseous distention of the bowel. 2. Technically limited study as the entire abdomen was not included on the examination ACT 112: Negative or not required by law. Electronically signed by: Alexis Osullivan M.D. 01/30/2021 2:22 PM Abdomen/Pelvis CT 01/30/21 14:17 CT OF THE ABDOMEN AND PELVIS WITHOUT CONTRAST CLINICAL HISTORY: Abdominal pain, bloating, xray poss obstruction. COMPARISON STUDY: KUB performed earlier today. TECHNIQUE: Axial images of the abdomen and pelvis were obtained without IV contrast. Images were reviewed in the axial, sagittal, and coronal planes. Automated exposure control was utilized for the study. A dose lowering technique was utilized adhering to the principles of ALARA. FINDINGS: Imaged portions of the lower chest demonstrate moderate cardiomegaly and coronary artery calcification. Note is made of suspected honeycombing within the lower lungs consistent with interstitial lung disease with pulmonary fibrosis. A small hiatal hernia is present. Evaluation of the abdomen and pelvis is suboptimal on this unenhanced examination. No pneumatosis, free air or portal venous gas is present. The gallbladder is mildly distended. There is no adjacent infiltration. Unenhanced images of the liver, spleen, adrenal glands are unremarkable. There is pancrea tic glandular atrophy. No peripancreatic infiltration is present. There is no biliary or pancreatic ductal dilatation. A 6 mm calcification within the upper portion of the left renal sinus is noted. This may reflect a nonobstructing calculus or vascular calcification. There is no hydronephrosis. There are no ureteral calculi. Paz balloon within the bladder is noted. There is bladder wall thickening. The appendix is normal. The colon is mildly distended. There is no transition point to suggest a bowel obstruction. There is mild infiltration adjacent to the distal sigmoid colon and the rectum. There may be mild wall thickening at the rectosigmoid junction. This colonic diverticulosis without evidence for acute diverticulitis. Moderate amount stool within the colon is noted. No suspicious osseous lesions are noted. There is no lymphadenopathy. IMPRESSION: 1. No bowel obstruction. Mild colonic distention without transition point. Mild wall thickening of the distal sigmoid colon and rectum with adjacent infiltration which suggests a nonspecific proctocolitis. 2. Mild gallbladder distention without adjacent infiltration. 3. Evidence for interstitial lung disease within the lung bases. ACT 112: Negative or not required by law. Electronically signed by: Ángel Mcintosh M.D. 01/30/2021 3:21 PM Discharge Plan Visit Data Chief Complaint: Constipation ED Provider: Skip Lewis Discharge Problem: Colitis, Generalized abdominal pain, UTI (urinary tract infection) Forms Stand Alone Forms: [employer] Prescriptions Prescriptions: No Action simvastatin 10 mg tablet 10 mg PO HS Qty: 90 RF: 3 cyanocobalamin (vitamin B-12) 1,000 mcg capsule 1,000 mcg PO QAM Qty: 90 RF: 3 lactase [Lactaid] 3,000 unit tablet 3,000 unit PO QID Qty: 120 RF: 3 metformin 850 mg tablet 850 mg PO QAM Qty: 90 RF: 3 tamsulosin 0.4 mg capsule 0.4 mg PO QAM RF: 0 ascorbate calcium (vitamin C) 500 mg tablet 500 mg PO QAM RF: 0 cetirizine [Zyrtec] 10 mg tablet 5 mg PO QAM RF: 0 escitalopram oxalate 10 mg tablet 10 mg PO QAM RF: 0 metoprolol tartrate 25 mg tablet 25 mg PO AMHS RF: 0 sennosides [senna] 8.6 mg Tablet 17.2 mg PO AMHS RF: 0 meclizine 12.5 mg Tablet 12.5 mg PO QAM RF: 0 omeprazole 10 mg Capsule,Delayed Release(Dr/Ec) 10 mg PO QAM RF: 0 acetaminophen [Tylenol] 325 mg Tablet 650 mg PO QAM RF: 0 trazodone 50 mg Tablet 25 mg PO HS PRN (Reason: Insomnia) RF: 0 Lantus Solostar U-100 Insulin 100 unit/mL (3 mL) insulin pen 18 unit SUBCUT HS RF: 0 acetaminophen [Tylenol] 325 mg tablet 975 mg PO Q6H MDD 3 GRAMS APAP/24 HOURS PRN (Reason: mild-mod pain) RF: 0
--- NOTE | 2021-01-30 15:22 | CT Scan Report ---
CT OF THE ABDOMEN AND PELVIS WITHOUT CONTRAST CLINICAL HISTORY: Abdominal pain, bloating, xray poss obstruction. COMPARISON STUDY: KUB performed earlier today. TECHNIQUE: Axial images of the abdomen and pelvis were obtained without IV contrast. Images were revi ewed in the axial, sagittal, and coronal planes. Automated exposure control was utilized for the adali dy. A dose lowering technique was utilized adhering to the principles of ALARA. FINDINGS: Imaged portions of the lower chest demonstrate moderate cardiomegaly and coronary artery ca lcification. Note is made of suspected honeycombing within the lower lungs consistent with interstiti al lung disease with pulmonary fibrosis. A small hiatal hernia is present. Evaluation of the abdomen and pelvis is suboptimal on this unenhanced examination. No pneumatosis, fr ee air or portal venous gas is present. The gallbladder is mildly distended. There is no adjacent inf iltration. Unenhanced images of the liver, spleen, adrenal glands are unremarkable. There is pancreat ic glandular atrophy. No peripancreatic infiltration is present. There is no biliary or pancreatic du ctal dilatation. A 6 mm calcification within the upper portion of the left renal sinus is noted. This may reflect a nonobstructing calculus or vascular calcification. There is no hydronephrosis. There a re no ureteral calculi. Paz balloon within the bladder is noted. There is bladder wall thickening. The appendix is normal. The colon is mildly distended. There is no transition point to suggest a carol l obstruction. There is mild infiltration adjacent to the distal sigmoid colon and the rectum. There may be mild wall thickening at the rectosigmoid junction. This colonic diverticulosis without evidenc e for acute diverticulitis. Moderate amount stool within the colon is noted. No suspicious osseous le sions are noted. There is no lymphadenopathy. IMPRESSION: 1. No bowel obstruction. Mild colonic distention without transition point. Mild wall thickening of th e distal sigmoid colon and rectum with adjacent infiltration which suggests a nonspecific proctocolit is. 2. Mild gallbladder distention without adjacent infiltration. 3. Evidence for interstitial lung disease within the lung bases. ACT 112: Negative or not required by law. Electronically signed by: Ángel Mcintosh M.D. 01/30/2021 3:21 PM
[2021-01-30 15:46] LABS: Appearance Urine Clear (Clear); Bacteria Urine Automated 1+ (Negative); Bilirubin Urine Negative (Negative); Blood Urine 3+ (Negative); Color Urine Yellow; Epithelial Cell Urine Auto 20-30 /lpf (0-5); Glucose Urine UA Negative (Negative); Ketones Urine Trace (Negative); Leukocyte Esterase Urine 2+ (Negative); Nitrite Urine Negative (Negative); Protein Urine 1+ (Negative); Specific Gravity Urine 1.016 (1.000-1.030); Urobilinogen Urine Negative (Negative); pH Urine 6.5 (4.5-7.5)
--- NOTE | 2021-01-30 16:10 | Electrocardiogram Report ---
Test Reason : Blood Pressure : / mmHG Vent. Rate : 077 BPM Atrial Rate : 077 BPM P-R Int : 224 ms QRS Dur : 074 ms QT Int : 404 ms P-R-T Axes : 037 -20 -04 degrees QTc Int : 457 ms Sinus rhythm with 1st degree A-V block Cannot rule out Anterior infarct (cited on or before 30-JAN-2021) Abnormal ECG When compared with ECG of 15-JAN-2021 16:47, VA interval has increased Nonspecific T wave abnormality no longer evident in Lateral leads Confirmed by Tre Reyna ([id number]) on 01/30/2021 4:09:58 PM Referred By: Confirmed By:Tre Reyna
[2021-01-30] MEDS ORDERED: cefTRIAXone SODIUM 1,000 MG/50 ML BAG IV STA (16:21)
[2021-01-30] MEDS ORDERED: SODIUM CHLORIDE 0.9% 1000ML 1,000 ML IV STA (17:13)
[2021-01-30] MEDS ORDERED: SODIUM CHLORIDE 0.9% 1000ML 500 ML IV ONE (17:13)
--- NOTE | 2021-01-30 18:34 | History & Physical Report ---
Date of Service January 30, 2021 Assessment & Plan (1) Colitis: (2) Hematochezia: Pt is 85 y/o M with PMH traumatic SDH s/p fall and [place] [facility] [place], H/O CVA with right hemiplegia, aphasia, HTN, DM II presented to ER from [facility] for abdominal pain and bloody BM. Reported bloody BM on 01/28/21 and loose stools x 2 days. Initial KUB findings consistent with fecal retention/possible ileus. Repeat KUB 01/30/21 with findings suggestive of volvulus vs distal colonic obstruction His SBPs reported high 90's low 100s at [facility] In ER pt afebrile, BP: 115/69. No leukocytosis. CT Abd/pelvis suggestive of Mild wall thickening of the distal sigmoid colon and rectum with adjacent infiltration which suggests a nonspecific proctocolitis. No bowel obstruction Admit further observation. DDX: ischemic colitis, infectious colitis Had negative C-diff outpatient on 01/28/21 Lactate: 1.4 Stool studies pending Clear liquid diet for now IVF GI consult, ER provider spoke with direct care professional CBC, BMP in am (3) UTI (urinary tract infection): Possible UTI Recent UTI. 01/15/21 urine culture +enterococcus. Finished Augmentin Today UA suggestive UTI. Pt unable to voice if urinary symptoms Urine culture pending In ER given Rocephin 1GM IV Will continue Rocephin pending urine culture Pt has Paz cath in place. Was placed 01/24/[address] [facility] for urinary retention Will hold pt's tamsulosin as requires meds to be crushed and unable to crush (4) Hypokalemia: K: 3.3 Replace and monitor (5) SDH (subdural hematoma): (6) CVA (cerebral vascular accident): History prior CVA with residual right sided hemiplegia, dysphasia. History SDH and [place] [facility] [place]/21-01/14/21. And readmitted after fall on 01/15/21 for findings of enlargement of SDH. Admitted to [facility] 01/21/21. Reports pt at baseline mental status and is receiving PT/OT/speech therapy. He is on pureed diet. Reports of having poor oral intake. Had ISRAEL that resolved with IVF. Also noted to have urinary retention and was needing straight cath. Paz cath was placed 01/24/21. Receives PT, OT, speech therapy at [facility] Fall precautions Aspiration Precautions Continue pureed diet, crushed meds PT/OT eval (7) HTN (hypertension): BP stable Continue metoprolol tartrate (8) Diabetes mellitus, type II: A1c: 7 on 01/16/21 Hold home metformin and Lantus Basal bolus insulin per protocol (9) GERD (gastroesophageal reflux disease): Hold home omeprazole as not formulary in hospital. Change to lansoprazole ODT DVT Prophylaxis -SCDs DNR/DNI as pt's paperwork from [facility] and upon speaking to pt's primary contact, Mike Stanton. A friend who reports is POA but not medical POA. She reports his sister Vanessa was medical POA however she . Follows with Dr Schaffer at [facility] for routine care Pt was seen and care coordinated with Dr Feliciano. See addendum History of Present Illness Chief Complaint: Abdominal pain, bloody stool Primary Care Provider: Camacho Schaffer MD Pt is 85 y/o M with PMH traumatic SDH s/p fall and recent hospitalization [place] [facility] [place], H/O CVA with right hemiplegia, aphasia, HTN, DM II presented to ER from [facility] for abdominal pain and bloody BM. History obtained from medical records as limited history can be obtained from pt secondary to dysphasia. [place] [facility] [place] on 01/10/21-01/14/21 and was discharged to back to [facility] and had another fall and was readmitted [place] [facility] [place] 01/15/21 for findings of enlargement of SDH. Was treated for UTI and HSV flare and discharged on Augmentin. Admitted to [facility] 01/21/21. Reports pt at baseline mental status and is receiving PT/OT/speech therapy. He is on pureed diet. Reports of having poor oral intake. Had ISRAEL that resolved with IVF. Also noted to have urinary retention and was needing straight cath. Paz cath was placed 01/24/21. On 01/28/21 was noted to have bloody BM. Having loose stools x 2 days. KUB at that time fecal retention possible ileus. Had negative C-Diff. Was started on senna. Repeat KUB today, 01/30/21 with findings suggestive of volvulus vs distal colonic obstruction and pt was referred to ER. His SBPs reported high 90's low 100s at [facility]. In ER pt afebrile, BP: 115/69. No leukocytosis. CT Abd/pelvis suggestive of Mild wall thickening of the distal sigmoid colon and rectum with adjacent infiltration which suggests a nonspecific proctocolitis. No bowel obstruction Pt being admitted for further observation and treatment. Allergies Allergy/AdvReac Type Severity Reaction Status Date / Time No Known Allergies Allergy ` Verified 01/30/21 16:09 Home Medications Medication Instructions Recorded Confirmed Type simvastatin 10 mg tablet 10 mg PO HS #90 tab 10/14/19 01/30/21 Rx ascorbate calcium (vitamin C) 500 mg PO QAM 07/09/20 01/30/21 History cetirizine [Zyrtec] 5 mg PO QAM 07/09/20 01/30/21 History escitalopram oxalate 10 mg PO QAM 07/09/20 01/30/21 History tamsulosin 0.4 mg PO QAM 07/09/20 01/30/21 History cyanocobalamin (vitamin B-12) 1,000 mcg PO QAM #90 cap 12/20/20 01/30/21 Rx 1,000 mcg capsule lactase 3,000 unit tablet 3,000 unit PO QID #120 tab 12/20/20 01/30/21 Rx metformin 850 mg tablet 850 mg PO QAM #90 tab 12/20/20 01/30/21 Rx acetaminophen [Tylenol] 975 mg PO Q6H PRN MDD 3 GRAMS 01/15/21 01/30/21 History APAP/24 HOURS insulin glargine [Lantus Solostar 18 unit SUBCUT HS 01/15/21 01/30/21 History U-100 Insulin] acetaminophen [Tylenol] 650 mg PO QAM 01/30/21 01/30/21 History meclizine 12.5 mg PO QAM 01/30/21 01/30/21 History metoprolol tartrate 25 mg PO AMHS 01/30/21 01/30/21 History omeprazole 10 mg PO QAM 01/30/21 01/30/21 History sennosides [senna] 17.2 mg PO AMHS 01/30/21 01/30/21 History trazodone 25 mg PO HS PRN 01/30/21 01/30/21 History Past Med/Surg History Medical History (Updated 01/30/21 @ 20:04 by Skip Lewis MD) 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 Cognitive impairment Concussion CVA (cerebral vascular accident) Dementia Depression Diabetes mellitus Gait disturbance, post-stroke Hemiplegia of dominant side, late effect of cerebrovascular disease Hemorrhagic stroke HTN (hypertension) senior living resident [facility] SDH (subdural hematoma) Subdural hematoma Urge incontinence of urine Urinary symptom or sign Vitamin B12 deficiency (dietary) anemia Surgical History History of colonoscopy History of eye surgery Family History Sister Hyperlipidemia Father , at age 60 Leukemia Mother , at age 90 from "old age" No problems noted. Other Family history non-contributory Social History Smoking Status: Unknown if ever smoked Tobacco Type: Cigarettes Second Hand Exposure: No; Hx Alcohol Use: No Hx Substance Use: No Preferred Language: Macanese Communication Ability: Impaired Visual Impairment: Limited Hearing Ability: Use of Hearing Aid marital status: Single Current Living Situation: Care Home Current Living Situation Comment: [facility] current occupational status: retired Feels Safe at Home: Yes Childhood Exposure to Second-Hand Smoke: No caffeine: Yes Dental Care, Regularly: Yes Physical Activity Frequency: Does not Exercise Seatbelt Use: always Sunscreen Use: No Review of Systems Review of Systems: Unobtainable due to cognitive status Physical Exam Physical Exam: General: no acute distress, moderately developed, moderately nourished Head: normocephalic, atraumatic Eyes: PERRL, EOM's intact, conjunctiva non-injected, anicteric ENT: normal inspection external ears, nose, mucous membranes moist Neck: supple, trachea midline Lungs: clear, no respiratory distress, no wheezing/rhonchi/rales CV: RRR, no murmur, no pretibial edema Abd: normal BS, soft, no apparent tenderness to palpation Ext: no cyanosis, no calf tenderness Neuro: Alert. Gives yes or no answers and limited answers. When asked if he knows his location he states "at your place". Right sided weakness, right fingers contracted (chronic from prior CVA) Skin: warm, dry; +multiple contusions to extremities noted Results & Data Results & Data ([facility]) Vital Signs (Past 12 Hours) Vital Signs Temp Pulse Pulse Resp BP BP Pulse Ox 01/30/21 17:52 74 20 116/52 L 98 01/30/21 16:41 72 18 112/67 98 01/30/21 16:07 75 20 135/70 01/30/21 15:35 58 L 16 118/57 L 95 01/30/21 14:01 65 19 95 01/30/21 14:00 64 19 101/49 L 95 01/30/21 13:30 75 18 97 01/30/21 13:02 36.0 C L 71 20 115/69 95 01/30/21 13:01 66 18 96 01/30/21 13:00 72 17 106/69 94 Laboratory Results Short CBC 01/30/21 Range/Units 13:33 WBC 8.44 (4.8-10.8) K/uL Hgb 11.7 L (14.0-18.0) g/dL Hct 35.2 L (42-52) % Plt Count 212 (130-400) K/uL BMP 01/30/21 13:33 Sodium 139 Potassium 3.3 L Chloride 108 H Carbon Dioxide 28 BUN 9 Creatinine 0.93 Glucose 103 H Calcium 8.1 L Liver Function 01/30/21 Range/Units 13:33 Total Bilirubin 0.4 (0.2-1) mg/dl AST 19 (15-37) U/L ALT 15 (12-78) U/L Alkaline Phosphatase 100 (45-117) U/L Albumin 2.6 L (3.4-5.0) gm/dl Urine 01/30/21 Range/Units 13:33 Urine Color Yellow Urine Appearance Clear (Clear) Urine pH 6.5 (4.5-7.5) Ur Specific [place] 1.016 (1.000-1.030) Urine Protein 1+ H (Negative) Urine Glucose (UA) Negative (Negative) Diagnostic Findings KUB X-Ray 01/30/21 13:19 XR KUB/Abdomen 1 view CLINICAL HISTORY: Abdominal pain COMPARISON STUDY: No previous studies for comparison. FINDINGS: A single supine view the abdomen is provided for interpretation. The pelvis and right lateral abdomen are not included. Additional views were to be obtained however the emergency room physician stated no additional films were necessary as he was going to order CT scan. The provided views reveal mild gaseous distention of the bowel. IMPRESSION: 1. Nonspecific bowel gas pattern with gaseous distention of the bowel. 2. Technically limited study as the entire abdomen was not included on the examination ACT 112: Negative or not required by law. Electronically signed by: Alexis Osullivan M.D. 01/30/2021 2:22 PM Abdomen/Pelvis CT 01/30/21 14:17 CT OF THE ABDOMEN AND PELVIS WITHOUT CONTRAST CLINICAL HISTORY: Abdominal pain, bloating, xray poss obstruction. COMPARISON STUDY: KUB performed earlier today. TECHNIQUE: Axial images of the abdomen and pelvis were obtained without IV contrast. Images were reviewed in the axial, sagittal, and coronal planes. Automated exposure control was utilized for the study. A dose lowering technique was utilized adhering to the principles of ALARA. FINDINGS: Imaged portions of the lower chest demonstrate moderate cardiomegaly and coronary artery calcification. Note is made of suspected honeycombing within the lower lungs consistent with interstitial lung disease with pulmonary fibr osis. A small hiatal hernia is present. Evaluation of the abdomen and pelvis is suboptimal on this unenhanced examination. No pneumatosis, free air or portal venous gas is present. The gallbladder is mildly distended. There is no adjacent infiltration. Unenhanced images of the liver, spleen, adrenal glands are unremarkable. There is pancreatic glandular atrophy. No peripancreatic infiltration is present. There is no biliary or pancreatic ductal dilatation. A 6 mm calcification within the upper portion of the left renal sinus is noted. This may reflect a nonobstructing calculus or vascular calcification. There is no hydronephrosis. There are no ureteral calculi. Paz balloon within the bladder is noted. There is bladder wall thickening. The appendix is normal. The colon is mildly disten ded. There is no transition point to suggest a bowel obstruction. There is mild infiltration adjacent to the distal sigmoid colon and the rectum. There may be mild wall thickening at the rectosigmoid junction. This colonic diverticulosis without evidence for acute diverticulitis. Moderate amount stool within the colon is noted. No suspicious osseous lesions are noted. There is no lymphadenopathy. IMPRESSION: 1. No bowel obstruction. Mild colonic distention without transition point. Mild wall thickening of the distal sigmoid colon and rectum with adjacent infiltration which suggests a nonspecific proctocolitis. 2. Mild gallbladder distention without adjacent infiltration. 3. Evidence for interstitial lung disease within the lung bases. ACT 112: Negative or not required by law. Electronically signed by: Ángel Mcintosh M.D. 01/30/2021 3:21 PM Code Status & VTE Plan VTE Prophylaxis Plan VTE Prophylaxis will be ordered: Yes Supervising Physician Co-Signing Physician Notes I have seen and examined the patient and have discussed the case with the provider above. I agree with the assessment and plan as stated. The patient is an 85 yo M s/p subdural hematoma with residual neurologic deficits including some work-finding issues who presented to the ER from the longterm with acute abdominal pain that began yesterday and was ?associated with blood per rectum. He has a difficult time qualifying the discomfort on interview because of the speech and articulation issues. However, he reports no issues eating. He denies any vomiting or diarrhea, and has had no other infectious symptoms such as fevers or chills. He has an indwelling Paz catheter reportedly placed after treatment of an enterococcus UTI for acute urinary retention. A CAUTI is now a possibility, agree with empiric Rocephin pending repeat urine culture. There is some suprapubic tenderness to palpation on my exam and his abdomen overall feels slightly distended. Although he denies point tenderness in other abdominal locations he appears to be in pain. He also experienced some discomfort when I flexed his right hip forward by bending his knee up. At the longterm an xray showed a potential volvulus vs obstruction which was not seen on ER imaging here today. The clinical picture appears to have a large differential diagnosis including but not limited to ischemic colitis, partial ?obstruction that has maybe resolved, complicated urinary infection, other infectious colitis or diverticulitis. On CT a/p colonic distenion is present without a transition point. Mild wall thickening of the distal sigmoid colon and rectum is also present. Will consult GI and general surgery for thoughts on etiology. DO Braden
[2021-01-30 18:56] LABS: Influenza A virus by PCR Negative (Neg); Influenza B virus by PCR Negative (Neg); RSV by PCR Negative (Neg); SARS CoV2 RNA(COVID-19) InHosp NEGATIVE (Negative)
[2021-01-30] MEDS ORDERED: CARBOHYDRATES FOR HYPOGLYCEMIA PO PRN (22:44)
[2021-01-30] MEDS ORDERED: traZODone HCL 50 MG TAB PO PRN (22:44)
[2021-01-30] MEDS ORDERED: SIMVASTATIN 10 MG TAB PO SCH (22:44)
[2021-01-30] MEDS ORDERED: GLUCOSE 10 TABS/TUBE PO PRN (22:44)
[2021-01-30] MEDS ORDERED: DEXTROSE 50% 50 ML SYRINGE IV PRN (22:44)
[2021-01-30] MEDS ORDERED: GLUCOSE 40% GEL 15 GM TUBE PO PRN (22:44)
[2021-01-30] MEDS ORDERED: ACETAMINOPHEN 325 MG TAB PO PRN (22:44)
[2021-01-30] MEDS ORDERED: GLUCAGON FOR INJ 1 MG VIAL SQ PRN (22:44)
[2021-01-30] MEDS ORDERED: OMEPRAZOLE 10 MG PO SCH (22:44)
[2021-01-30] MEDS: NSS + 20MEQ KCL 20 MEQ/1,000 ML BAG IV SCH (23:35)
[2021-01-30] MEDS: METOPROLOL TARTRATE 25 MG TAB PO SCH (23:36)
[2021-01-30] MEDS: INSULIN GLARGINE SOLOSTAR 100 UNITS/ML 3 ML PEN SC SCH (23:44)
[2021-01-30] MEDS: INSULIN ASPART 100 UNITS/ML 3 ML PEN SC SCH (23:45)
[2021-01-31 07:16] LABS: Hemoglobin 11.4 g/dL (14.0-18.0); Mean Corpuscular Hgb Conc 33.5 g/dL (32-36); Mean Corpuscular Volume 92.4 fL (80-100); Platelet Count 223 K/uL (130-400); RDW Coefficient of Variation 14.4 % (11.5-14.5); RDW Standard Deviation 47.8 fL (36.4-46.3); Red Blood Count 3.68 M/uL (4.7-6.1); White Blood Count 6.83 K/uL (4.8-10.8)
[2021-01-31 07:42] LABS: BUN Creatinine Ratio 11.6 (10-20); Calcium 8.2 mg/dl (8.5-10.1); Est GFR (African American) 99.9; Est GFR (Non-African American) 86.2; Magnesium 1.7 mg/dl (1.8-2.4); Potassium 3.3 mmol/L (3.5-5.1)
[2021-01-31] MEDS: INSULIN ASPART 100 UNITS/ML 3 ML PEN SC SCH ×2 (08:19→12:06)
[2021-01-31] MEDS: INSULIN GLARGINE SOLOSTAR 100 UNITS/ML 3 ML PEN SC SCH (08:19)
[2021-01-31] MEDS: METOPROLOL TARTRATE 25 MG TAB PO SCH (08:21)
[2021-01-31] MEDS ORDERED: CYANOCOBALAMIN 500 MCG TABLET (VITAMIN B-12) PO SCH (09:00)
[2021-01-31] MEDS ORDERED: MECLIZINE 12.5 MG TAB PO SCH (09:00)
[2021-01-31] MEDS ORDERED: OMEPRAZOLE 10 MG PO SCH (09:00)
[2021-01-31] MEDS ORDERED: LANSOPRAZOLE 15 MG SOLTAB PO SCH (09:00)
[2021-01-31] MEDS ORDERED: CETIRIZINE HCL 10 MG TABLET PO SCH (09:00)
[2021-01-31] MEDS ORDERED: ACETAMINOPHEN 325 MG TAB PO SCH (09:00)
[2021-01-31] MEDS ORDERED: ESCITALOPRAM OXALATE 10 MG TAB PO SCH (09:00)
[2021-01-31] MEDS ORDERED: TAMSULOSIN HCL 0.4 MG CAP PO SCH ×2 (09:00)
[2021-01-31] MEDS ORDERED: DOCUSATE SODIUM 100 MG CAP PO SCH (09:00)
[2021-01-31] MEDS ORDERED: POTASSIUM CHLORIDE PWD 20 MEQ PACK PO ONE (09:45)
[2021-01-31] MEDS: MAGNESIUM SULFATE / D5W 1 GM/100 ML BAG IV SCH ×2 (10:02→12:04)
--- NOTE | 2021-01-31 11:26 | Gastrointestinal Consultation ---
Date of Consultation January 31, 2021 Assessment & Plan (1) Hematochezia: (2) Proctocolitis: Pt is a 85 y/o male w hx of CVA, recent subdural hematoma s/p fall, presented from [facility] w abd pain and reports of bloody stools. Abd imaging initially concerning for possible volvulus but f/u CT showed no signs of bowel obstruction or transition point though may have proctocolitis. No more signs of GI bleeding since admitted, blood ct stable - Monitor blood ct and transfuse prn - Bowel regimen: Colace 100mg bID + Senna 17.2mg qHS - Monitor for furhter s/s of GI bleeding - Defer endoscopic workup at this time Supervising Physician Co-Signing Physician Notes I have discussed the management with VINAY Nolasco. Patient is confused - with tomlinson on his forehead. Overall, abdomen is slightly distended but soft. CT imaging suggestive of proctocolitis presumably from constipation. nonspecific gb distension with normal lft's. Agree with further plan of care as per Brittaney's assessment and plan. History of Present Illness Reason for Consultation: Proctocolitis Requesting Physician: Dr. Halley Feliciano Attending Physician: Dr. Susanna English History of Present Illness Pt is a 85 y/o male w hx of traumatic subdural hematoma s/p fall and recent hospitalization in [facility] 11/2020, hx of CVA w residual R hemiplegia, aphasia, who presented to ED from [facility] w abd pain and bloody BM. Pt is stuporous today, only responded to name called by opening eyes but not answering questions/following commands. Chart reviewed. Noted on admission H&P pt was having loose stools x 2 days. Negative Cdiff. Initial KUB showed possible fecal retention w possible sigmoid volvulus. F/U CT abd/pelvis on admission showed no bowel obstruction, mild colonic distention without transition point and mild wall thickening of the distal sigmoid colon, rectum with adjacent infiltration which suggests a nonspecific proctocolitis. Pt had no signs of rectal bleeding overnight since admitted per RN. Blood ct stable. Allergies Allergy/AdvReac Type Severity Reaction Status Date / Time No Known Allergies Allergy ` Verified 01/30/21 16:09 Home Medications Medication Instructions Recorded Confirmed Type simvastatin 10 mg tablet 10 mg PO HS #90 tab 10/14/19 01/30/21 Rx ascorbate calcium (vitamin C) 500 mg PO QAM 07/09/20 01/30/21 History cetirizine [Zyrtec] 5 mg PO QAM 07/09/20 01/30/21 History escitalopram oxalate 10 mg PO QAM 07/09/20 01/30/21 History tamsulosin 0.4 mg PO QAM 07/09/20 01/30/21 History cyanocobalamin (vitamin B-12) 1,000 mcg PO QAM #90 cap 12/20/20 01/30/21 Rx 1,000 mcg capsule lactase 3,000 unit tablet 3,000 unit PO QID #120 tab 12/20/20 01/30/21 Rx metformin 850 mg tablet 850 mg PO QAM #90 tab 12/20/20 01/30/21 Rx acetaminophen [Tylenol] 975 mg PO Q6H PRN MDD 3 GRAMS 01/15/21 01/30/21 History APAP/24 HOURS insulin glargine [Lantus Solostar 18 unit SUBCUT HS 01/15/21 01/30/21 History U-100 Insulin] acetaminophen [Tylenol] 650 mg PO QAM 01/30/21 01/30/21 History meclizine 12.5 mg PO QAM 01/30/21 01/30/21 History metoprolol tartrate 25 mg PO AMHS 01/30/21 01/30/21 History omeprazole 10 mg PO QAM 01/30/21 01/30/21 History sennosides [senna] 17.2 mg PO AMHS 01/30/21 01/30/21 History trazodone 25 mg PO HS PRN 01/30/21 01/30/21 History Patient History Medical History 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 SDH (subdural hematoma) Subdural hematoma Urge incontinence of urine Urinary symptom or sign Vitamin B12 deficiency (dietary) anemia Surgical History History of colonoscopy History of eye surgery Family History Sister Hyperlipidemia Father , at age 60 Leukemia Mother , at age 90 from "old age" No problems noted. Other Family history non-contributory Social History Smoking Status: Unknown if ever smoked Tobacco Type: Cigarettes Second Hand Exposure: No; Hx Alcohol Use: No Hx Substance Use: No Preferred Language: Congolese Communication Ability: Effective Visual Impairment: Limited Hearing Ability: Use of Hearing Aid Web Marketing Strategist Required: No Beliefs That Will Affect Care: None marital status: Single Current Living Situation: [facility] Current Living Situation Comment: [facility] current occupational status: retired Feels Safe at Home: Yes Childhood Exposure to Second-Hand Smoke: No caffeine: Yes Dental Care, Regularly: Yes Physical Activity Frequency: Does not Exercise Seatbelt Use: always Sunscreen Use: No Assistive Devices: None Review of Systems Review of Systems: Unobtainable due to cognitive status Physical Exam Constitutional: well groomed, comfortable and + lethargic ENMT: external ear and nose normal, oropharynx normal Respiratory: no respiratory distress and does not use accessory muscles Auscultation: + diminished lung sounds Cardiovascular: RRR, no murmur, no edema Gastrointestinal (Abdomen): Inspection/Auscultation: + hypoactive bowel sounds Percussion/Palpation: abdomen soft; abdomen nontender Skin: no rashes, warm and dry no jaundice Psychiatric: stuporous, only responded to name called by opening eyes but not following commands/answering questions Lymphatic: no lymphedema Results & [facility] ([facility]) Vital Signs (Past 12 Hours) Vital Signs Temp Pulse Pulse Resp BP Pulse Ox 01/31/21 07:55 36.9 C 70 18 135/80 94 01/31/21 07:35 70 01/31/21 03:04 36.6 C 74 16 146/82 H 95 01/31/21 00:22 71
[2021-01-31] MEDS: NSS + 20MEQ KCL 20 MEQ/1,000 ML BAG IV SCH (12:04)
--- NOTE | 2021-01-31 12:24 | Surgery Consultation ---
Date of Consultation January 31, 2021 Assessment & Plan (1) Proctocolitis: 85 year-old male presented to ED for loose stools, abdominal pain and bloody bowel movements x 2 days. Had KUB concerning for possible vovulus. CT scan showing mild colonic distention however no obstruction and mild wall thickening with surrounding infiltration of distal sigmoid and rectum concerning for nonspecific proctocolitis. C. diff on 01/28/21 negative. Abdomen is mildly distended but soft, no peritonitis Plan: No surgical intervention recommended at this time. Continue conservative measures. Bowel regimen per GI Continue medical management Dr. Lundberg has seen patient and present during my examination. History of Present Illness Reason for Consultation: acute abdominal pain, distention Requesting Physician: aHlley Feliciano DO Attending Physician: Halley Feliciano DO History of Present Illness Pt is 85 y/o M with past medical history significant for traumatic subdural hematoma s/p fall and recent hospitalization at [facility] in 12/2020, H/O CVA with right hemiplegia, aphasia, HTN, DM II presented to ER from [facility] for abdominal pain and bloody BM. History obtained from medical chart as limited history can be obtained from pt secondary lethargy. On 01/28/21 was noted to have bloody BM. Having loose stools x 2 days. KUB at that time fecal retention possible ileus. Had negative C-Diff. Was started on senna. Repeat KUB today on 01/30/21 with findings suggestive of volvulus vs distal colonic obstruction and pt was referred to ER. Er work-up included labs and CT scan which showed no leukocytosis, lactic acid 1.4. CT scan showing mild colonic distention with mild wall thickening and surrounding infiltration of the sigmoid and rectum consistent with nonspecific proctocolitis. Allergies Allergy/AdvReac Type Severity Reaction Status Date / Time No Known Allergies Allergy ` Verified 01/30/21 16:09 Home Medications Medication Instructions Recorded Confirmed Type simvastatin 10 mg tablet 10 mg PO HS #90 tab 10/14/19 01/30/21 Rx ascorbate calcium (vitamin C) 500 mg PO QAM 07/09/20 01/30/21 History cetirizine [Zyrtec] 5 mg PO QAM 07/09/20 01/30/21 History escitalopram oxalate 10 mg PO QAM 07/09/20 01/30/21 History tamsulosin 0.4 mg PO QAM 07/09/20 01/30/21 History cyanocobalamin (vitamin B-12) 1,000 mcg PO QAM #90 cap 12/20/20 01/30/21 Rx 1,000 mcg capsule lactase 3,000 unit tablet 3,000 unit PO QID #120 tab 12/20/20 01/30/21 Rx metformin 850 mg tablet 850 mg PO QAM #90 tab 12/20/20 01/30/21 Rx acetaminophen [Tylenol] 975 mg PO Q6H PRN MDD 3 GRAMS 01/15/21 01/30/21 History APAP/24 HOURS insulin glargine [Lantus Solostar 18 unit SUBCUT HS 01/15/21 01/30/21 History U-100 Insulin] acetaminophen [Tylenol] 650 mg PO QAM 01/30/21 01/30/21 History meclizine 12.5 mg PO QAM 01/30/21 01/30/21 History metoprolol tartrate 25 mg PO AMHS 01/30/21 01/30/21 History omeprazole 10 mg PO QAM 01/30/21 01/30/21 History sennosides [senna] 17.2 mg PO AMHS 01/30/21 01/30/21 History trazodone 25 mg PO HS PRN 01/30/21 01/30/21 History Patient History Medical History 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 SDH (subdural hematoma) Subdural hematoma Urge incontinence of urine Urinary symptom or sign Vitamin B12 deficiency (dietary) anemia Surgical History History of colonoscopy History of eye surgery Family History Sister Hyperlipidemia Father , at age 60 Leukemia Mother , at age 90 from "old age" No problems noted. Other Family history non-contributory Social History Smoking Status: Unknown if ever smoked Tobacco Type: Cigarettes Second Hand Exposure: No; Hx Alcohol Use: No Hx Substance Use: No Preferred Language: Estonian Communication Ability: Effective Visual Impairment: Limited Hearing Ability: Use of Hearing Aid Retail Leader Required: No Beliefs That Will Affect Care: None marital status: Single Current Living Situation: [facility] Current Living Situation Comment: [place] current occupational status: retired Feels Safe at Home: Yes Childhood Exposure to Second-Hand Smoke: No caffeine: Yes Dental Care, Regularly: Yes Physical Activity Frequency: Does not Exercise Seatbelt Use: always Sunscreen Use: No Assistive Devices: None Review of Systems Review of Systems: Unobtainable due to cognitive status Physical Exam Constitutional: comfortable and + lethargic; no acute distress Respiratory: normal respiratory effort; no respiratory distress and no labored breathing Gastrointestinal (Abdomen): Inspection/Auscultation: + abdomen distended (mild) Percussion/Palpation: abdomen soft; abdomen nontender, no guarding and abdomen not rigid Skin: no rashes, warm and dry Results & Data ([facility]) Vital Signs (Past 12 Hours) Vital Signs Temp Pulse Pulse Resp BP Pulse Ox 01/31/21 11:20 36.7 C 62 18 114/71 95 01/31/21 07:55 36.9 C 70 18 135/80 94 01/31/21 07:35 70 01/31/21 03:04 36.6 C 74 16 146/82 H 95 01/31/21 00:22 71 Laboratory Results 01/31/21 01/31/21 01/31/21 Range/Units 11:42 07:50 06:25 WBC (4.8-10.8) K/uL RBC (4.7-6.1) M/uL Hgb (14.0-18.0) g/dL Hct (42-52) % MCV (80-100) fL MCH (25-34) pg MCHC (32-36) g/dL RDW Std Deviation (36.4-46.3) fL RDW Coeff of Brianna (11.5-14.5) % Plt Count (130-400) K/uL MPV (7.4-10.4) fL Immature Gran % (Auto) % Neut % (Auto) % Lymph % (Auto) % Darke % (Auto) % Eos % (Auto) % Baso % (Auto) % Neut # (Auto) (1.4-6.5) K/uL Lymph # (Auto) (1.2-3.4) K/uL Darke # (Auto) (0.11-0.59) K/uL Eos # (Auto) (0-0.5) K/uL Baso # (Auto) (0-0.2) K/uL Immature Gran # (Auto) (0.00-0.02) K/uL Sodium 139 (136-145) mmol/L Potassium 3.3 L (3.5-5.1) mmol/L Chloride 108 H (98-107) mmol/L Carbon Dioxide 25 (21-32) mmol/L Anion Gap 6.0 (3-11) BUN 8 (7-18) mg/dl Creatinine 0.71 (0.6-1.4) mg/dl Est Cr Clr Drug Dosing 80.0 Est GFR ( Amer) 99.9 Est GFR (Non-Af Amer) 86.2 BUN/Creatinine Ratio 11.6 (10-20) Glucose 84 (70-99) mg/dl POC Glucose 162 H 83 (70-99) mg/dl Lactate (0.4-2.0) mmol/L Calcium 8.2 L (8.5-10.1) mg/dl Magnesium 1.7 L (1.8-2.4) mg/dl Total Bilirubin (0.2-1) mg/dl AST (15-37) U/L ALT (12-78) U/L Alkaline Phosphatase (45-117) U/L Total Protein (6.4-8.2) gm/dl Albumin (3.4-5.0) gm/dl Globulin (2.5-4.0) gm/dl Albumin/Globulin Ratio (0.9-2) Lipase (73-393) U/L Urine Color Urine Appearance (Clear) Urine pH (4.5-7.5) Ur Specific [place] (1.000-1.030) Urine Protein (Negative) Urine Glucose (UA) (Negative) Urine Ketones (Negative) Urine Blood (Negative) Urine Nitrite (Negative) Urine Bilirubin (Negative) Urine Urobilinogen (Negative) Ur Leukocyte Esterase (Negative) Urine WBC (Auto) (0-5) /hpf Urine RBC (Auto) (0-4) /hpf U Hyaline Cast (Auto) (0-5) /lpf U Epithel Cells (Auto) (0-5) /lpf Urine Bacteria (Auto) (Negative) Stl C. diff Tox B Gene (Neg) COVID-19 Eval Order SARS-CoV-2 (PCR) (Negative) Influenza Type A (PCR) (Neg) Influenza Type B (PCR) (Neg) RSV (RT-PCR) (Neg) 01/31/21 01/31/21 01/30/21 Range/Units 06:25 05:50 23:27 WBC 6.83 (4.8-10.8) K/uL RBC 3.68 L (4.7-6.1) M/uL Hgb 11.4 L (14.0-18.0) g/dL Hct 34.0 L (42-52) % MCV 92.4 (80-100) fL MCH 31.0 (25-34) pg MCHC 33.5 (32-36) g/dL RDW Std Deviation 47.8 H (36.4-46.3) fL RDW Coeff of Brianna 14.4 (11.5-14.5) % Plt Count 223 (130-400) K/uL MPV 9.0 (7.4-10.4) fL Immature Gran % (Auto) % Neut % (Auto) % Lymph % (Auto) % Darke % (Auto) % Eos % (Auto) % Baso % (Auto) % Neut # (Auto) (1.4-6.5) K/uL Lymph # (Auto) (1.2-3.4) K/uL Darke # (Auto) (0.11-0.59) K/uL Eos # (Auto) (0-0.5) K/uL Baso # (Auto) (0-0.2) K/uL Immature Gran # (Auto) (0.00-0.02) K/uL Sodium (136-145) mmol/L Potassium (3.5-5.1) mmol/L Chloride (98-107) mmol/L Carbon Dioxide (21-32) mmol/L Anion Gap (3-11) BUN (7-18) mg/dl Creatinine (0.6-1.4) mg/dl Est Cr Clr Drug Dosing Est GFR ( Amer) Est GFR (Non-Af Amer) BUN/Creatinine Ratio (10-20) Glucose (70-99) mg/dl POC Glucose 95 (70-99) mg/dl Lactate (0.4-2.0) mmol/L Calcium (8.5-10.1) mg/dl Magnesium (1.8-2.4) mg/dl Total Bilirubin (0.2-1) mg/dl AST (15-37) U/L ALT (12-78) U/L Alkaline Phosphatase (45-117) U/L Total Protein (6.4-8.2) gm/dl Albumin (3.4-5.0) gm/dl Globulin (2.5-4.0) gm/dl Albumin/Globulin Ratio (0.9-2) Lipase (73-393) U/L Urine Color Urine Appearance (Clear) Urine pH (4.5-7.5) Ur Specific [place] (1.000-1.030) Urine Protein (Negative) Urine Glucose (UA) (Negative) Urine Ketones (Negative) Urine Blood (Negative) Urine Nitrite (Negative) Urine Bilirubin (Negative) Urine Urobilinogen (Negative) Ur Leukocyte Esterase (Negative) Urine WBC (Auto) (0-5) /hpf Urine RBC (Auto) (0-4) /hpf U Hyaline Cast (Auto) (0-5) /lpf U Epithel Cells (Auto) (0-5) /lpf Urine Bacteria (Auto) (Negative) Stl C. diff Tox B Gene Negative Cdiff Gene (Neg) COVID-19 Eval Order SARS-CoV-2 (PCR) (Negative) Influenza Type A (PCR) (Neg) Influenza Type B (PCR) (Neg) RSV (RT-PCR) (Neg) 01/30/21 01/30/21 01/30/21 Range/Units 19:20 19:19 17:56 WBC (4.8-10.8) K/uL RBC (4.7-6.1) M/uL Hgb (14.0-18.0) g/dL Hct (42-52) % MCV (80-100) fL MCH (25-34) pg MCHC (32-36) g/dL RDW Std Deviation (36.4-46.3) fL RDW Coeff of Brianna (11.5-14.5) % Plt Count (130-400) K/uL MPV (7.4-10.4) fL Immature Gran % (Auto) % Neut % (Auto) % Lymph % (Auto) % Darke % (Auto) % Eos % (Auto) % Baso % (Auto) % Neut # (Auto) (1.4-6.5) K/uL Lymph # (Auto) (1.2-3.4) K/uL Darke # (Auto) (0.11-0.59) K/uL Eos # (Auto) (0-0.5) K/uL Baso # (Auto) (0-0.2) K/uL Immature Gran # (Auto) (0.00-0.02) K/uL Sodium (136-145) mmol/L Potassium (3.5-5.1) mmol/L Chloride (98-107) mmol/L Carbon Dioxide (21-32) mmol/L Anion Gap (3-11) BUN (7-18) mg/dl Creatinine (0.6-1.4) mg/dl Est Cr Clr Drug Dosing Est GFR ( Amer) Est GFR (Non-Af Amer) BUN/Creatinine Ratio (10-20) Glucose (70-99) mg/dl POC Glucose (70-99) mg/dl Lactate 1.4 (0.4-2.0) mmol/L Calcium (8.5-10.1) mg/dl Magnesium 1.8 (1.8-2.4) mg/dl Total Bilirubin (0.2-1) mg/dl AST (15-37) U/L ALT (12-78) U/L Alkaline Phosphatase (45-117) U/L Total Protein (6.4-8.2) gm/dl Albumin (3.4-5.0) gm/dl Globulin (2.5-4.0) gm/dl Albumin/Globulin Ratio (0.9-2) Lipase (73-393) U/L Urine Color Urine Appearance (Clear) Urine pH (4.5-7.5) Ur Specific [place] (1.000-1.030) Urine Protein (Negative) Urine Glucose (UA) (Negative) Urine Ketones (Negative) Urine Blood (Negative) Urine Nitrite (Negative) Urine Bilirubin (Negative) Urine Urobilinogen (Negative) Ur Leukocyte Esterase (Negative) Urine WBC (Auto) (0-5) /hpf Urine RBC (Auto) (0-4) /hpf U Hyaline Cast (Auto) (0-5) /lpf U Epithel Cells (Auto) (0-5) /lpf Urine Bacteria (Auto) (Negative) Stl C. diff Tox B Gene (Neg) COVID-19 Eval Order SARS-CoV-2 (PCR) NEGATIVE (Negative) Influenza Type A (PCR) Negative (Neg) Influenza Type B (PCR) Negative (Neg) RSV (RT-PCR) Negative (Neg) 01/30/21 01/30/21 01/30/21 Range/Units 17:56 13:33 13:33 WBC (4.8-10.8) K/uL RBC (4.7-6.1) M/uL Hgb (14.0-18.0) g/dL Hct (42-52) % MCV (80-100) fL MCH (25-34) pg MCHC (32-36) g/dL RDW Std Deviation (36.4-46.3) fL RDW Coeff of Brianna (11.5-14.5) % Plt Count (130-400) K/uL MPV (7.4-10.4) fL Immature Gran % (Auto) % Neut % (Auto) % Lymph % (Auto) % Darke % (Auto) % Eos % (Auto) % Baso % (Auto) % Neut # (Auto) (1.4-6.5) K/uL Lymph # (Auto) (1.2-3.4) K/uL Darke # (Auto) (0.11-0.59) K/uL Eos # (Auto) (0-0.5) K/uL Baso # (Auto) (0-0.2) K/uL Immature Gran # (Auto) (0.00-0.02) K/uL Sodium 139 (136-145) mmol/L Potassium 3.3 L (3.5-5.1) mmol/L Chloride 108 H (98-107) mmol/L Carbon Dioxide 28 (21-32) mmol/L Anion Gap 3.0 (3-11) BUN 9 (7-18) mg/dl Creatinine 0.93 (0.6-1.4) mg/dl Est Cr Clr Drug Dosing Not Reportable Est GFR ( Amer) 87.1 Est GFR (Non-Af Amer) 75.1 BUN/Creatinine Ratio 9.5 L (10-20) Glucose 103 H (70-99) mg/dl POC Glucose (70-99) mg/dl Lactate (0.4-2.0) mmol/L Calcium 8.1 L (8.5-10.1) mg/dl Magnesium (1.8-2.4) mg/dl Total Bilirubin 0.4 (0.2-1) mg/dl AST 19 (15-37) U/L ALT 15 (12-78) U/L Alkaline Phosphatase 100 (45-117) U/L Total Protein 6.4 (6.4-8.2) gm/dl Albumin 2.6 L (3.4-5.0) gm/dl Globulin 3.8 (2.5-4.0) gm/dl Albumin/Globulin Ratio 0.7 L (0.9-2) Lipase 83 (73-393) U/L Urine Color Yellow Urine Appearance Clear (Clear) Urine pH 6.5 (4.5-7.5) Ur Specific [place] 1.016 (1.000-1.030) Urine Protein 1+ H (Negative) Urine Glucose (UA) Negative (Negative) Urine Ketones Trace H (Negative) Urine Blood 3+ H (Negative) Urine Nitrite Negative (Negative) Urine Bilirubin Negative (Negative) Urine Urobilinogen Negative (Negative) Ur Leukocyte Esterase 2+ H (Negative) Urine WBC (Auto) 10-30 H (0-5) /hpf Urine RBC (Auto) 10-30 H (0-4) /hpf U Hyaline Cast (Auto) 1-5 (0-5) /lpf U Epithel Cells (Auto) 20-30 H (0-5) /lpf Urine Bacteria (Auto) 1+ H (Negative) Stl C. diff Tox B Gene (Neg) COVID-19 Eval Order [facility] at [facility] SARS-CoV-2 (PCR) (Negative) Influenza Type A (PCR) (Neg) Influenza Type B (PCR) (Neg) RSV (RT-PCR) (Neg) 04/07/21 Range/Units 13:33 WBC 8.44 (4.8-10.8) K/uL RBC 3.78 L (4.7-6.1) M/uL Hgb 11.7 L (14.0-18.0) g/dL Hct 35.2 L (42-52) % MCV 93.1 (80-100) fL MCH 31.0 (25-34) pg MCHC 33.2 (32-36) g/dL RDW Std Deviation 49.6 H (36.4-46.3) fL RDW Coeff of Brianna 14.7 H (11.5-14.5) % Plt Count 212 (130-400) K/uL MPV 8.8 (7.4-10.4) fL Immature Gran % (Auto) 0.1 % Neut % (Auto) 59.0 % Lymph % (Auto) 29.3 % Darke % (Auto) 8.9 % Eos % (Auto) 2.5 % Baso % (Auto) 0.2 % Neut # (Auto) 4.98 (1.4-6.5) K/uL Lymph # (Auto) 2.47 (1.2-3.4) K/uL Darke # (Auto) 0.75 H (0.11-0.59) K/uL Eos # (Auto) 0.21 (0-0.5) K/uL Baso # (Auto) 0.02 (0-0.2) K/uL Immature Gran # (Auto) 0.01 (0.00-0.02) K/uL Sodium (136-145) mmol/L Potassium (3.5-5.1) mmol/L Chloride (98-107) mmol/L Carbon Dioxide (21-32) mmol/L Anion Gap (3-11) BUN (7-18) mg/dl Creatinine (0.6-1.4) mg/dl Est Cr Clr Drug Dosing Est GFR ( Amer) Est GFR (Non-Af Amer) BUN/Creatinine Ratio (10-20) Glucose (70-99) mg/dl POC Glucose (70-99) mg/dl Lactate (0.4-2.0) mmol/L Calcium (8.5-10.1) mg/dl Magnesium (1.8-2.4) mg/dl Total Bilirubin (0.2-1) mg/dl AST (15-37) U/L ALT (12-78) U/L Alkaline Phosphatase (45-117) U/L Total Protein (6.4-8.2) gm/dl Albumin (3.4-5.0) gm/dl Globulin (2.5-4.0) gm/dl Albumin/Globulin Ratio (0.9-2) Lipase (73-393) U/L Urine Color Urine Appearance (Clear) Urine pH (4.5-7.5) Ur Specific [place] (1.000-1.030) Urine Protein (Negative) Urine Glucose (UA) (Negative) Urine Ketones (Negative) Urine Blood (Negative) Urine Nitrite (Negative) Urine Bilirubin (Negative) Urine Urobilinogen (Negative) Ur Leukocyte Esterase (Negative) Urine WBC (Auto) (0-5) /hpf Urine RBC (Auto) (0-4) /hpf U Hyaline Cast (Auto) (0-5) /lpf U Epithel Cells (Auto) (0-5) /lpf Urine Bacteria (Auto) (Negative) Stl C. diff Tox B Gene (Neg) COVID-19 Eval Order SARS-CoV-2 (PCR) (Negative) Influenza Type A (PCR) (Neg) Influenza Type B (PCR) (Neg) RSV (RT-PCR) (Neg) Diagnostic Findings CT OF THE ABDOMEN AND PELVIS WITHOUT CONTRAST CLINICAL HISTORY: Abdominal pain, bloating, xray poss obstruction. COMPARISON STUDY: KUB performed earlier today. TECHNIQUE: Axial images of the abdomen and pelvis were obtained without IV contrast. Images were reviewed in the axial, sagittal, and coronal planes. Automated exposure control was utilized for the study. A dose lowering techniqu e was utilized adhering to the principles of ALARA. FINDINGS: Imaged portions of the lower chest demonstrate moderate cardiomegaly and coronary artery calcification. Note is made of suspected honeycombing within the lower lungs consistent with interstitial lung disease with pulmonary fibrosis. A small hiatal hernia is present. Evaluation of the abdomen and pelvis is suboptimal on this unenhanced examination. No pneumatosis, free air or portal venous gas is present. The gallbladder is mildly distended. There is no adjacent infiltration. Unenhanced images of the liver, spleen, adrenal glands are unremarkable. There is pancreatic glandular atrophy. No peripancreatic infiltration is present. There is no biliary or pancreatic ductal dilatation. A 6 mm calcification within the upper portion of the left renal sinus is noted. This may reflect a nonobstructing calculus or vascular calcification. There is no hydronephrosis. There are no ureteral calculi. Paz balloon within the bladder is noted. There is bladder wall thickening. The appendix is normal. The colon is mildly distended. There is no transition point to suggest a bowel obstruction. There is mild infiltration adjacent to the distal sigmoid colon and the rectum. There may be mild wall thickening at the rectosigmoid junction. This colonic diverticulosis without evidence for acute diverticulitis. Moderate amount stool within the colon is noted. No suspicious osseous lesions are noted. There is no lymphadenopathy. IMPRESSION: 1. No bowel obstruction. Mild colonic distention without transition point. Mild wall thickening of the distal sigmoid colon and rectum with adjacent infiltration which suggests a nonspecific proctocolitis. 2. Mild gallbladder distention without adjacent infiltration. 3. Evidence for interstitial lung disease within the lung bases.
--- NOTE | 2021-01-31 14:02 | CT Scan Report ---
CT SCAN OF THE BRAIN WITHOUT IV CONTRAST CLINICAL HISTORY: Acute change in mental status. COMPARISON STUDY: CT of the brain dated 01/15/2021. TECHNIQUE: Unenhanced axial CT scan of the brain is performed from the vertex to the skull base. A do se lowering technique was utilized adhering to the principles of ALARA. CT DOSE: 821.00 mGycm FINDINGS: Brain parenchyma: Right cerebellar encephalomalacia is unchanged and consistent with a remote infarct . There is a large mixed attenuation subdural hemorrhage identified along the right convexity. This m easures up to 3.1 cm in diameter and effaces the subjacent cortical sulci in the right lateral ventri manfred. There is 6 mm of right to left midline shift. There are age-related involutional changes noting advanced subcortical and periventricular microangiopathic change. There is no evidence of acute terr itorial ischemia by CT criteria. Chronic lacunar infarcts are identified in both thalami. Ventricles, sulci, cisterns: Prominent secondary to involutional change. See above. Intracranial vasculature: There is atherosclerotic calcification of the cavernous carotid and vertebr al arteries. Calvarium: Unremarkable. Soft tissues: A small metallic foreign bodies present within the left facial soft tissues. Sinuses and mastoids: The visualized paranasal sinuses are clear. There are bilateral mastoid effusio ns, right larger than left. A left-sided hearing aid is in place. Orbits: The bony orbits are grossly intact. There is a right ocular lens implant. IMPRESSION: 1. There is a large mixed attenuation subdural hemorrhage along the right convexity. This has signifi cantly increased as compared to 01/15/2021 and is likely acute on chronic. 2. There is significant mass effect with effacement of the right cortical sulci and the right lateral ventricle, as well as right to left midline shift. 3. Additional findings as above. ACT 112: Negative or not required by law. Electronically signed by: Alan Avila M.D. 01/31/2021 2:01 PM
[2021-01-31] MEDS ORDERED: levETIRAcetam 1,000 MG in 0.9 % SODIUM CHLORIDE 100 ML IV ONE (15:00)
--- NOTE | 2021-01-31 15:03 | Communication Note ---
Date of Service: January 31, 2021 Current Inpatient Medications Acetaminophen (Acetaminophen 325 Mg Tab) 650 mg PO Q4H PRN PRN Reason: Pain or Fever Stop: 03/01/21 22:43 Acetaminophen (Acetaminophen 325 Mg Tab) [facility] Stop: 03/02/21 08:59 Last Admin: 01/31/21 08:21 Dose: 650 mg Documented by: Cetirizine HCl (Cetirizine Hcl 10 Mg Tablet) 5 mg [facility] Stop: 03/02/21 08:59 Last Admin: 01/31/21 08:22 Dose: 5 mg Documented by: Cyanocobalamin (Cyanocobalamin 500 Mcg Tablet (Vitamin B-12)) 1,000 mcg PO [facility] Stop: 03/02/21 08:59 Last Admin: 01/31/21 08:21 Dose: 1,000 mcg Documented by: Dextrose (Dextrose 50% 50 Ml Syringe) 25 - 50 ml IV UD PRN; Protocol PRN Reason: Hypoglycemia Protocol Stop: 03/01/21 22:43 Docusate Sodium (Docusate Sodium 100 Mg Cap) 100 mg PO BID [facility] Stop: 03/02/21 08:59 Last Admin: 01/31/21 10:02 Dose: 100 mg Documented by: Escitalopram Oxalate (Escitalopram Oxalate 10 Mg Tab) 10 [facility] Stop: 03/02/21 08:59 Last Admin: 01/31/21 08:21 Dose: 10 mg Documented by: Glucagon (Glucagon For Inj 1 Mg Vial) 1 mg SQ UD PRN; Protocol PRN Reason: Hypoglycemia Protocol Stop: 03/01/21 22:43 Glucose (Glucose 10 Tabs/Tube) 4 - 8 tabs PO UD PRN; Protocol PRN Reason: Hypoglycemia Protocol Stop: 03/01/21 22:43 Glucose (Glucose 40% Gel 15 Gm Tube) 15 - 30 gm PO UD PRN; Protocol PRN Reason: Hypoglycemia Protocol Stop: 03/01/21 22:43 Ceftriaxone Sodium 1,000 mg/ (Dextrose) 50 mls @ 100 mls/hr IV Q24H VINNIE; Protocol Stop: 02/05/21 15:59 Levetiracetam 1,000 mg/ Sodium (Chloride) 110 mls @ 440 mls/hr IV ONE ONE Stop: 01/31/21 15:14 Insulin Aspart (Insulin Aspart 100 Units/Ml 3 Ml Pen) 0 units SC ACHS [facility] Stop: 03/01/21 22:43 Last Admin: 01/31/21 12:06 Dose: 2 units Documented by: Insulin Glargine (Insulin Glargine Solostar 100 Units/Ml 3 Ml Pen) 0 - 9 units SC BID [facility] Stop: 03/01/21 22:43 Last Admin: 01/31/21 08:19 Dose: Not Given Documented by: Lansoprazole (Lansoprazole 15 Mg Soltab) 15 mg [facility] Stop: 03/02/21 08:59 Last Admin: 01/31/21 08:21 Dose: 15 mg Documented by: Meclizine HCl (Meclizine 12.5 Mg Tab) 12.5 mg PO [facility] Stop: 03/02/21 08:59 Last Admin: 01/31/21 08:21 Dose: 12.5 mg Documented by: Metoprolol Tartrate (Metoprolol Tartrate 25 Mg Tab) 25 mg PO [facility] Stop: 03/01/21 22:43 Last Admin: 01/31/21 08:21 Dose: 25 mg Documented by: Miscellaneous (Carbohydrates For Hypoglycemia ) 15 - 30 gm PO UD PRN PRN Reason: Hypoglycemia Protocol Stop: 03/01/21 22:43 Sennosides (Senna 8.6 Mg Tab) 17.2 mg PO HS [facility] Stop: 03/02/21 20:59 Simvastatin (Simvastatin 10 Mg Tab) 10 mg PO HS [facility] Stop: 03/01/21 22:43 Last Admin: 01/30/21 23:36 Dose: 10 mg Documented by: Tamsulosin HCl (Tamsulosin Hcl 0.4 Mg Cap) 0.4 mg PO [facility] Stop: 03/02/21 08:59 Last Admin: 01/31/21 08:21 Dose: 0.4 mg Documented by: Trazodone HCl (Trazodone Hcl 50 Mg Tab) 25 mg PO HS PRN PRN Reason: Insomnia Stop: 03/01/21 22:43 The patient is an 85-year-old man with a history of multiple CVAs in the past who presented with reports of hematochezia and questionable acute abdominal pain. Overnight he remained hemodynamically stable and afebrile and was oxygenating well on room air however a repeat head CT was performed on hospital day 2 in response to decreased cognition. He was found to have a large mixed attenuation subdural hematoma along the right convexity that had significantly increased as compared to the CT on 01/15/2021 and was considered likely acute on chronic. There was also significant mass-effect with effacement of the right cortical sulci in the right lateral ventricle as well as a right to left midline shift. The patient waxed and waned mental status and at one point was difficult to arouse. Reflexes could not be obtained in the baseline right-sided hemiparesis remain present. Pupils were equal and small and reactive bilaterally. Neurosurgery was contacted at [facility] regarding the findings and requested immediate transfer. Regarding his abdominal issues, he does have abdominal distention to a certain extent however, this does not appear to be consistent with any peritonitis per surgical consultation. Conservative observation was recommended. A similar recommendation was given from a GI network consultant. CT abdomen pelvis findings performed without contrast on admission revealed no evidence of bowel obstruction with mild colonic distention without a transition point. There was mild wall thickening of the distal sigmoid colon and rectum with adjacent infiltration suggesting a nonspecific proctocolitis thought to be secondary to constipation. He was placed on stool softeners. On the morning of 01/31 he was able to tolerate his oral liquid diet without much issue and became more lethargic and obtunded later in the morning. He was transferred out in serious condition and his CODE STATUS was clarified with his power of employee benefits attorney, Ms. Mike Stanton. Based on my discussion with her, he is a DO NOT RESUSCITATE CODE STATUS, however, she is fine with him being intubated temporarily for this potential neurosurgical intervention that is needed. The patient was transferred via [facility]. Halley Feliciano DO [facility] Hospitalist
[2021-01-31] MEDS ORDERED: cefTRIAXone SODIUM 1,000 MG in DEXTROSE 5% 50 ML IV SCH (16:00)
[2021-01-31] MEDS ORDERED: SENNA 8.6 MG TAB PO SCH (21:00)
--- NOTE | 2021-02-02 00:25 | Discharge Summary ---
Date of Service January Admission HPI Per Admitting Provider Pt is 85 y/o M with PMH traumatic SDH s/p fall and recent hospitalization at [facility] in 12/2020, H/O CVA with right hemiplegia, aphasia, HTN, DM II presented to ER from [facility] for abdominal pain and bloody BM. History obtained from medical records as limited history can be obtained from pt secondary to dysphasia. At [facility] for SDH on 01/10/21-01/14/21 and was discharged to back to [facility] and had another fall and was readmitted to [facility] on 01/15/21 for findings of enlargement of SDH. Was treated for UTI and HSV flare and discharged on Augmentin. Admitted to [facility] 01/21/21. Reports pt at baseline mental status and is receiv ing PT/OT/speech therapy. He is on pureed diet. Reports of having poor oral intake. Had ISRAEL that resolved with IVF. Also noted to have urinary retention and was needing straight cath. Paz cath was placed 01/24/21. On 01/28/21 was noted to have bloody BM. Having loose stools x 2 days. KUB at that time fecal retention possible ileus. Had negative C-Diff. Was started on senna. Repeat KUB today, 01/30/21 with findings suggestive of volvulus vs distal colonic obstruction and pt was referred to ER. His SBPs reported high 90's low 100s at [facility]. In ER pt afebrile, BP: 115/69. No leukocytosis. CT Abd/pelvis suggestive of Mild wall thickening of the distal sigmoid colon and rectum with adjacent infiltration which suggests a nonspecific proctocolitis. No bowel obstruction Pt being admitted for further observation and treatment. Admission Exam Per Admitting Provider General: no acute distress, moderately developed, moderately nourished Head: normocephalic, atraumatic Eyes: PERRL, EOM's intact, conjunctiva non-injected, anicteric ENT: normal inspection external ears, nose, mucous membranes moist Neck: supple, trachea midline Lungs: clear, no respiratory distress, no wheezing/rhonchi/rales CV: RRR, no murmur, no pretibial edema Abd: normal BS, soft, no apparent tenderness to palpation Ext: no cyanosis, no calf tenderness Neuro: Alert. Gives yes or no answers and limited answers. When asked if he knows his location he states "at your place". Right sided weakness, right fingers contracted (chronic from prior CVA) Skin: warm, dry; +multiple contusions to extremities noted Principal Diagnosis Acute metabolic encephalopathy Subdural hematoma-worsened with acute midline shift Acute abdominal pain-uncertain etiology, possible constipation Hypokalemia Hypomagnesemia Discharge Data Allergies Allergy/AdvReac Type Severity Reaction Status Date / Time No Known Allergies Allergy ` Verified 01/30/21 16:09 Consultations 01/30/21 17:36 ED Decision to Admit Stat 01/30/21 21:03 Consult General Surgery Routine 01/31/21 08:00 Consult Gastroenterology Routine 01/31/21 14:38 Burn CD for patient Stat Burn CD for patient Stat 01/31/21 14:54 Burn CD for patient Stat Ordered Studies 01/30/21 14:17 CT abd pelvis wo con Stat 01/31/21 13:31 CT head/brain wo con Stat Hospital Course (1) Acute metabolic encephalopathy: (2) SDH (subdural hematoma): (3) Acute abdominal pain: (4) Colitis: (5) Hematochezia: (6) Hypokalemia: (7) UTI (urinary tract infection): The patient is an 85-year-old man with a history of multiple CVAs in the past who presented with reports of hematochezia and questionable acute abdominal pain. He presented with a Paz catheter in place reportedly placed in the last week for acute urinary retention. He was known to have recently been treated with Augmentin for enterococcus in his urine. UA on arrival was suggestive of a UTI and he was empirically started on Rocephin pending urine cultures. Overnight he remained hemodynamically stable and afebrile and was oxygenating well on room air however a repeat head CT was performed on hospital day 2 in response to decreased cognition. He was found to have a large mixed attenuation subdural hematoma along the right convexity that had significantly increased as compared to the CT on 01/15/2021 and was considered likely acute on chronic. There was also significant mass-effect with effacement of the right cortical sulci in the right lateral ventricle as well as a right to left midline shift. The patient was felt to be around baseline mental status on admission (per [facility]) with known deficits from prior neurologic insults, and had mental status changes and at one point was difficult to arouse. At this time, reflexes could not be obtained in the baseline right- sided hemiparesis remain present. Pupils were equal and small and reactive bilaterally. The CT head was obtained in response to these findings. Neurosurgery was contacted at [facility] regarding the findings and requested immediate transfer. Regarding his abdominal issues, he does have abdominal distention to a certain extent however, this does not appear to be consistent with any peritonitis per surgical consultation. Conservative observation was recommended. A similar recommendation was given from a GI transportation sales consultant. CT abdomen pelvis findings performed without contrast on admission revealed no evidence of bowel obstruction with mild colonic distention without a transition point. There was mild wall thickening of the distal sigmoid colon and rectum with adjacent infiltration suggesting a nonspecific proctocolitis thought to be secondary to constipation. He was placed on stool softeners. On the morning of 01/31 he was able to tolerate his oral liquid diet without much issue and became more lethargic and obtunded later in the morning. He was transferred out in serious condition and his CODE STATUS was clarified with his power of can slider, Ms. Mike Stanton. Based on my discussion with her, he is a DO NOT RESUSCITATE CODE STATUS, however, she is fine with him being intubated temporarily for this potential neurosurgical intervention that is needed. The patient was transferred via [facility]. Total Time Total Time Spent Total Time Spent (In Minutes): 60 Discharge Plan Discharge Items Patient Disposition: Transfer Acute Care Hospital Reason For Visit: COLITIS Discharge Diagnosis: Acute metabolic encephalopathy Subdural hematoma-worsened with acute midline shift Acute abdominal pain-uncertain etiology, possible constipation Hypokalemia Hypomagnesemia Condition on Discharge: Serious Activity: As commented below Activity Comment: per receiving facility Non-emergency contact: Primary Care Provider Call non-emergency contact if: you have any medication questions Follow-up/Referrals: Camacho Schaffer MD [Primary Care Provider] - Diet: Clear liquid Addtl Attending Provider Instructions: You are being transferred to an outside facility for additional care. Please consider following up with your primary care provider within one week of discharge from the hospital. It was a pleasure taking care of you! Please call if you have any questions or problems. You can reach a [facility] hospitalist on duty at [facility] 24 hours a day by calling [phone]. Take care of yourself. Halley Feliciano DO [facility] Hospitalist Pending Studies at Discharge: No Stand-Alone Forms: My [facility] Skilled Items Patient informed of condition?: Yes DNR: Yes Discharge Level of Care: Other Communicable Disease: No Discharge Prognosis: Deteriorating Lines: Peripheral IV Urinary Catheter: Yes Medications and DC Order Prescriptions: Continued simvastatin 10 mg tablet 10 mg PO HS Qty: 90 RF: 3 cyanocobalamin (vitamin B-12) 1,000 mcg capsule 1,000 mcg PO QAM Qty: 90 RF: 3 lactase [Lactaid] 3,000 unit tablet 3,000 unit PO QID Qty: 120 RF: 3 metformin 850 mg tablet 850 mg PO QAM Qty: 90 RF: 3 ascorbate calcium (vitamin C) 500 mg tablet 500 mg PO QAM RF: 0 cetirizine [Zyrtec] 10 mg tablet 5 mg PO QAM RF: 0 escitalopram oxalate 10 mg tablet 10 mg PO QAM RF: 0 metoprolol tartrate 25 mg tablet 25 mg PO AMHS RF: 0 sennosides [senna] 8.6 mg Tablet 17.2 mg PO AMHS RF: 0 meclizine 12.5 mg Tablet 12.5 mg PO QAM RF: 0 omeprazole 10 mg Capsule,Delayed Release(Dr/Ec) 10 mg PO QAM RF: 0 acetaminophen [Tylenol] 325 mg Tablet 650 mg PO QAM RF: 0 trazodone 50 mg Tablet 25 mg PO HS PRN (Reason: Insomnia) RF: 0 tamsulosin 0.4 mg capsule 0.4 mg PO DAILY RF: 0 Lantus Solostar U-100 Insulin 100 unit/mL (3 mL) insulin pen 18 unit SUBCUT HS RF: 0 acetaminophen [Tylenol] 325 mg tablet 975 mg PO Q6H MDD 3 GRAMS APAP/24 HOURS PRN (Reason: mild-mod pain) RF: 0 Discharge Orders: Discharge Order (Routine); Ordered 01/31/21 Ordered By: Halley Feliciano Admission Data Admit Date/Time: 01/30/21 18:08 Attending Provider: Halley Feliciano Admit Provider: Halley Feliciano Primary Care Provider: Camacho Schaffer Other Providers: Susanna English ; Hannah Lundberg
--- NOTE | 2021-02-07 13:04 | Coding Query ---
CODING QUERY To promote full compliance with coding requirements relating to patient care, provider participation is requested in all cases of claims service representative uncertainty. Please assist us with the question(s) below: In the record, it states that the patient has an UTI. The H&P documents, "He has an indwelling Gonzales catheter reportedly placed after treatment of an enterococcus UTI for acute urinary retention. A CAUTI is now a possibility, agree with empiric Rocephin pending repeat urine culture.". Please clarify below the cause of the UTI if applicable. Thank you. ( ) The indwelling gonzales was the cause of the UTI. ( ) Other urinary cath/device was the cause of the UTI. ( ) UTI, unspecified cause. (x ) Other (Specify): There was a UTI present prior to placement of the catheter, which took place prior to this hospitalization, from enterococcus. It is not known if this was cleared prior to insertion of the Gonzales. The finding of persistent enterococcus may be a new infection or residual infection prior to placement of the catheter. Principal Diagnosis: "that condition established after study, to be chiefly responsible for occasioning the admission of the patient to the hospital for care." Co-Existing Principal Diagnosis: "when two or more diagnoses equally meet the criteria for principal diagnosis as determined by the circumstances of admission, diagnostic work up, and/or therapy provided, and the Alphabetic Index, Tabular List, or another coding guideline does not provide sequencing direction, any one of the diagnoses may be sequenced first." "When the physician has documented what appears to be a current diagnosis in the body of the record, but has not included the diagnosis in the final diagnostic statement, the physician should be asked whether the diagnosis should be added." (Source [facility] 2 QTR90. p3-4) JENNY
--- NOTE | 2021-02-07 13:08 | Coding Query ---
PRESENT ON ADMISSION QUERY To promote full compliance with coding requirements relating to pateint care, physician participation is requested in all cases of art objects repairer uncertainty. Please assist us with the question(s) below: Please place an X within the parenthesis (x). The following diagnosis listed in this patient's medical record require physician assistance to determine if they were present on admission (POA) or not. Please advise for each diagnosis whether it was present on admission, not present on admission, or if it was clinically undetermined. 1. ACUTE METABOLIC ENCEPHALOPATHY (documented on Discharge Summary, down under Discharge Diagnosis) ( ) Present On Admission ( x) Not Present On Admission ( ) Clinically Undetermined Thank you Candace Warner *Definition of the present on admission (POA)-Present on admission is defined as present at the time the order for inpatient admission occurs. Conditions that develop during an outpatient encounter prior to a written order for inpatient admission (including emergency department, observation, or outpatient surgery) are considered present on admission. MTDD
== END 2021-01-31 15:28 | disposition short-term general hospital (02) | DRG 391 ==
LOC: ED 12:52 → 2N 18:08